=== PATIENT | female | born 1945 | race Caucasian/White ===

== ENCOUNTER → 2016-10-02 08:27 | Outpatient (CLI) | payer MEDICARE ==
[2016-07-15 13:44] VITALS: BMI 36.2
[~2016-10-02 08:27] MED LIST: ACTOS45 MG PO; AFRIN15 ML; ALDACTONE50 MG PO; ATIVAN1 MG PO; CELEXA20 MG; CELEXA20 MG PO; CHRONULAC30 ML PO; CIPRO500 MG PO; FLOMAX0.4 MG PO; IBUPROFEN600 MG PO; LASIX20 MG; LASIX20 MG PO; LEVAQUIN250 MG PO; LOPRESSOR50 MG; LOTENSIN40 MG; MICRO-K10 MEQ; PEPCID20 MG PO; PLOGLITAZONE; POTASSIUM CHLOR8 ME1 PO; SPORANOX100 MG; VITAMIN B-121000 MC3 PO; VITAMIN D31000 UNIT PO; XIFAXAN550 MG PO; ZANTAC150 MG PO; ZOFRAN4 MG PO
[2016-10-02 09:05] LABS: BASOPHILS 0.6 % (0.0-2.0); EOSINOPHILS 7.5 % (0-7); HEMATOCRIT 29.8 % (36.0-48.0); LYMPHOCYTES 41.5 % (15-50); MCH 34.2 pg (26.0-34.0); MCHC 33.6 g/dL (31.0-37.0); MCV 102.1 fL (80.0-100.0); MEAN PLATELET VOLUME 9.3 fL (7.4-10.4); NEUTROPHILS 33.4 % (40-80); PLATELET COUNT 112 10x3/uL (130-400); RBC 2.92 10x6/uL (4.00-5.40); RDW 16.2 % (11.5-14.5)
[2016-10-02 09:14] LABS: INR 1.26 (0.85-1.17); PROTIME 15.7 SECONDS (11.6-15.0)
[2016-10-02 09:21] LABS: ALBUMIN 2.5 g/dL (3.4-5.0); BILIRUBIN - DIRECT 0.64 mg/dL (0.00-0.30); BILIRUBIN - INDIRECT 1.16 mg/dL (0.00-1.00); BILIRUBIN - TOTAL 1.8 mg/dL (0.2-1.3); PROTEIN - SERUM 6.1 g/dL (6.4-8.2)
[2016-10-02 09:52] LABS: WBC 1.6 10x3/uL (4.8-10.8)
== END | disposition home or self-care (01) ==
LOC: D.LAB 08:00 → D.US 09:00
PROVIDERS: Internal Medicine Gastroenterology
DX: K74.3 Primary biliary cirrhosis (principal); K74.69 Other cirrhosis of liver

== ENCOUNTER → 2016-10-08 09:51 | Outpatient (CLI) | payer MEDICARE ==
[2016-07-15 13:44] VITALS: BMI 36.2
== END | disposition home or self-care (01) ==
LOC: D.CT 09:51
DX: K74.60 Unspecified cirrhosis of liver (principal)

== ENCOUNTER → 2017-02-08 10:02 | Day surgery (SDC) | payer MEDICARE ==
[~2017-02-08] VITALS: Ht 149.9 cm; Wt 77.3 kg
--- NOTE | ~2017-02-08 | OP ---
PATIENT NAME: JACKY PRINCE MEDICAL RECORD: [id number] :49 [facility] DATE: SURGEON: SOLOMON HERRERA DO DATE OF OPERATION: 02/08/2017 PROCEDURE: Esophagogastroduodenoscopy. INDICATIONS FOR PROCEDURE: Cirrhosis with history of esophageal varices grade I as well as a blood coagulation disorder. SCOPE: Olympus video gastroscope. MEDICATIONS: Propofol 200 mg IV per anesthesia. ESTIMATED BLOOD LOSS: Minimal. COMPLICATIONS: None. FINDINGS: Informed consent was given. The patient was made comfortable with the above medication. After reaching an adequate level of sedation by slow IV push, the patient was placed on her left side. The endoscope was then advanced under direct visualization through the mouth to the second portion of the duodenum. The upper portion of the esophagus appeared normal. In the middle and distal thirds of the esophagus, there were very small segment of grade I esophageal varices with no bleeding stigmata. At the GE junction, there was some evidence of LA class A reflux induced esophagitis, which was mild. The endoscope was advanced into the stomach and retroflexed to view the cardia, where diminutive sliding hiatal hernia was present. At the cardia, there were a few areas that were oozing blood due to the friability of this tissue. This friability was noted with just washing of the water jet. Throughout the stomach, there was some very mild portal hypertensive gastropathy. There were no polyps visualized in the stomach. There was some granularity and erythema consistent with possible gastritis. No biopsies were taken on this examination due to the patient's tendency to easily bleed. The endoscope was advanced beyond the pylorus into the duodenal bulb and second portion of the duodenum, which appeared normal. Scope was withdrawn from the patient. The patient tolerated the procedure well and there were no complications. IMPRESSION: 1. Grade I esophageal varices without bleeding stigmata. 2. Grade A reflux induced esophagitis. 3. Diminutive sliding hiatal hernia. 4. Portal hypertensive gastropathy. 5. Coagulopathy. PLAN AND RECOMMENDATIONS: 1. Discharge home when recovery parameters are met. 2. Continue current diet. 3. Continue current medications. 4. 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 5. Recall EGD in 1 year for surveillance of esophageal varices. TRANSINT:[id number] Voice Confirmation ID: [id number] DOCUMENT ID: [id number] OPERATIVE REPORT [id number] JACKY PRINCE NATHAN A DO CC: [id number] DICTATION DATE: 02/08/17 1136 HOT STICK MAN: 02/08/17 2215 [facility] [address] [id number]
[~2017-02-08 10:02] MED LIST changes: -AFRIN15 ML; +AFRIN15 ML NASAL; +FUROSEMIDE20 MG PO; -LASIX20 MG
[2017-02-08 10:58] VITALS: BP 118/37; Ht 149.9 cm; Wt 77.3 kg
--- NOTE | 2017-02-08 11:55 | NUR ---
1145-RECD TO ROOM. ALERT. VOISE HERE TO REPORT FINDINGS. IV PATENT. DENIES NAUSEA. 1150-FULL LIQUIDS SERVED.
--- NOTE | 2017-02-08 12:28 | NUR ---
1230-D/C HOME WITH SON VIA WHEELCHAIR.
== END | disposition home or self-care (01) ==
LOC: D.OPS 10:00
DX: K74.60 Unspecified cirrhosis of liver (principal); I85.10 Secondary esophageal varices without bleeding; K21.0 Gastro-esophageal reflux disease with esophagitis; K44.9 Diaphragmatic hernia without obstruction or gangrene; K76.6 Portal hypertension; K31.89 Other diseases of stomach and duodenum; D68.9 Coagulation defect, unspecified; Z01.812 Encounter for preprocedural laboratory examination

== ENCOUNTER → 2017-04-13 16:43 | Day surgery (SDC) | payer MEDICARE ==
[2017-02-08 10:58] VITALS: BMI 34.4
[2017-04-13 08:55] LABS: HEMATOCRIT 27.4 % (36.0-48.0); MCH 32.8 pg (26.0-34.0); MCHC 32.8 g/dL (31.0-37.0); MEAN PLATELET VOLUME 8.3 fL (7.4-10.4); PLATELET COUNT 94 10x3/uL (130-400); RBC 2.74 10x6/uL (4.00-5.40); RDW 19.1 % (11.5-14.5)
[2017-04-13 09:06] LABS: INR 1.37 (0.85-1.17); PROTIME 16.8 SECONDS (11.6-15.0); WBC 1.9 10x3/uL (4.8-10.8)
[2017-04-13 09:17] LABS: ALBUMIN 2.2 g/dL (3.4-5.0); BILIRUBIN - DIRECT 0.75 mg/dL (0.00-0.30); BILIRUBIN - INDIRECT 1.49 mg/dL (0.00-1.00); BILIRUBIN - TOTAL 2.24 mg/dL (0.2-1.3); PROTEIN - SERUM 6.5 g/dL (6.4-8.2)
[2017-04-13 09:44] LABS: BASOPHILS 2 % (0-2); EOSINOPHILS 4 % (0-7); LYMPHOCYTES 40 % (15-50); MONOCYTES 4 % (2-11); NEUTROPHILS 50 % (40-80); PLATELET ESTIMATE DECREASED
== END | disposition home or self-care (01) ==
LOC: D.LAB 08:00 → D.US 09:00 → D.MAMMO 16:43
PROVIDERS: Internal Medicine Gastroenterology
DX: Z12.31 Encounter for screening mammogram for malignant neoplasm of breast (principal); K74.60 Unspecified cirrhosis of liver

== ENCOUNTER → 2017-10-04 09:28 | Outpatient (CLI) | payer MEDICARE ==
[2017-02-08 10:58] VITALS: BMI 34.4
[2017-10-04 10:04] LABS: MCH 34.2 pg (26.0-34.0); MCHC 33.3 g/dL (31.0-37.0); MCV 102.7 fL (80.0-100.0); MEAN PLATELET VOLUME 8.7 fL (7.4-10.4); PLATELET COUNT 84 10x3/uL (130-400); RBC 2.63 10x6/uL (4.00-5.40); RDW 19.9 % (11.5-14.5)
[2017-10-04 10:11] LABS: INR 1.45 (0.85-1.17); PROTIME 17.2 SECONDS (11.6-15.0)
[2017-10-04 10:18] LABS: ALBUMIN 2.1 g/dL (3.4-5.0); BILIRUBIN - DIRECT 1.03 mg/dL (0.00-0.30); BILIRUBIN - INDIRECT 1.63 mg/dL (0.00-1.00); BILIRUBIN - TOTAL 2.66 mg/dL (0.2-1.3); PROTEIN - SERUM 6.3 g/dL (6.4-8.2)
[2017-10-04 11:17] LABS: LYMPHOCYTES 28 % (15-50); MONOCYTES 10 % (2-11); NEUTROPHILS 62 % (40-80); PLATELET ESTIMATE DECREASED
[2017-10-04 11:18] LABS: ROULEAUX OCC
== END | disposition home or self-care (01) ==
LOC: D.LAB 09:28 → D.US 10:00
PROVIDERS: Internal Medicine Gastroenterology
DX: K74.60 Unspecified cirrhosis of liver (principal)

== ENCOUNTER → 2017-10-07 14:07 | Outpatient (CLI) | payer MEDICARE ==
[2017-02-08 10:58] VITALS: BMI 34.4
== END | disposition home or self-care (01) ==
LOC: D.CT 10-06 15:00
DX: R93.5 Abnormal findings on diagnostic imaging of other abdominal regions, including retroperitoneum (principal)

== ENCOUNTER 2018-01-19 17:01 | Inpatient (IN) | payer MEDICARE ==
[~2018-01-19] VITALS: Ht 149.9 cm; Wt 65.3 kg
[~2018-01-19 17:01] MED LIST changes: +ACTOS15 MG PO; -ACTOS45 MG PO
[2018-01-19 19:34] LABS: INR 1.48 (0.85-1.17); PROTIME 17.4 SECONDS (11.6-15.0)
[2018-01-19 19:43] LABS: ALBUMIN 2.1 g/dL (3.4-5.0); ANION GAP 11.2 mmol/L (8-16); BILIRUBIN - TOTAL 1.92 mg/dL (0.2-1.3); CALCIUM 7.8 mg/dL (8.5-10.1); CREATININE - SERUM 0.9 mg/dL (0.6-1.3); MAGNESIUM - SERUM 1.6 mg/dL (1.8-2.4); POTASSIUM - SERUM 3.2 mmol/L (3.5-5.1); PROTEIN - SERUM 6.4 g/dL (6.4-8.2)
[2018-01-19 19:56] VITALS: BP 132/39; BMI 29.1
[2018-01-19 20:00] VITALS: BP 136/49
[2018-01-20] VITALS: BP 115/46
[2018-01-20 04:45] VITALS: BP 115/36
[2018-01-20 08:08] LABS: BASOPHILS 0.6 % (0-2); EOSINOPHILS 3.1 % (0-7); HEMATOCRIT 23.8 % (36.0-48.0); HEMOGLOBIN 7.7 g/dL (12-16); MCH 30.6 pg (26.0-34.0); MCHC 32.4 g/dL (31.0-37.0); MCV 94.4 fL (80.0-100.0); MEAN PLATELET VOLUME 8.9 fL (7.4-10.4); MONOCYTES 19.3 % (2-11); PLATELET COUNT 97 10x3/uL (130-400); RBC 2.52 10x6/uL (4.00-5.40); RDW 17.1 % (11.5-14.5)
[2018-01-20 08:15] LABS: CALC OSMOLALITY 277 mosm/kg (275-300); CALCIUM 7.9 mg/dL (8.5-10.1); CARBON DIOXIDE 26.4 mmol/L (21.0-32.0); CHLORIDE - SERUM 108 mmol/L (98-107); CREATININE - SERUM 0.7 mg/dL (0.6-1.3); POTASSIUM - SERUM 3.3 mmol/L (3.5-5.1); SODIUM 141 mmol/L (136-145); UREA NITROGEN 8 mg/dL (7-18); eGFR NON AFRICAN AMERICAN 88 mL/min (90-120)
[2018-01-20 08:18] LABS: GLUCOSE 88 mg/dL (74-106); WBC 1.6 10x3/uL (4.8-10.8)
[2018-01-20 08:33] VITALS: BP 112/46
[2018-01-20 12:32] VITALS: BMI 29.1
[2018-01-20 14:14] VITALS: Ht 149.9 cm; Wt 65.3 kg
[2018-01-20 14:54] LABS: % SATURATION 8 % (15-55); IRON 24 ug/dl (35-150); TOTAL IRON BIND CAPACITY 293 ug/dl (260-445); UNSAT IRON BIND CAPACITY 269 ug/dl (150-375)
[2018-01-20 15:13] LABS: FERRITIN 112 ng/mL (3-244); LDH 300 U/L (81-234)
[2018-01-20 16:58] LABS: PATH REVIEW PERIPHERAL SMEAR REVIEWED
[2018-01-20 20:00] VITALS: BP 126/49
[2018-01-21] VITALS (8 sets, daily range): BP systolic 111–141; BP diastolic 36–47
[2018-01-21 04:34] LABS: BASOPHILS 1.1 % (0-2); EOSINOPHILS 2.6 % (0-7); HEMATOCRIT 24.2 % (36.0-48.0); HEMOGLOBIN 7.6 g/dL (12-16); MCH 29.9 pg (26.0-34.0); MCHC 31.4 g/dL (31.0-37.0); MCV 95.3 fL (80.0-100.0); MEAN PLATELET VOLUME 8.2 fL (7.4-10.4); MONOCYTES 13.2 % (2-11); NEUTROPHILS 38.1 % (40-80); PLATELET COUNT 106 10x3/uL (130-400); RBC 2.54 10x6/uL (4.00-5.40); RDW 17.3 % (11.5-14.5)
[2018-01-21 04:38] LABS: WBC 1.9 10x3/uL (4.8-10.8)
[2018-01-21 04:50] LABS: CALC OSMOLALITY 279 mosm/kg (275-300); CALCIUM 7.4 mg/dL (8.5-10.1); CARBON DIOXIDE 26.4 mmol/L (21.0-32.0); CHLORIDE - SERUM 110 mmol/L (98-107); CREATININE - SERUM 0.7 mg/dL (0.6-1.3); GLUCOSE 76 mg/dL (74-106); POTASSIUM - SERUM 3.1 mmol/L (3.5-5.1); SODIUM 142 mmol/L (136-145); UREA NITROGEN 7 mg/dL (7-18); eGFR NON AFRICAN AMERICAN 88 mL/min (90-120)
[2018-01-21 08:20] LABS: FOLATE (FOLIC ACID) - SERUM >20.0 ng/mL (>3.0)
[2018-01-21 16:34] LABS: APPEARANCE HAZY (CLEAR); BACTERIA FEW /hpf (NONE SEEN); BILIRUBIN NEGATIVE (NEGATIVE); COLOR YELLOW (YELLOW); EPITHELIAL CELLS 0-5 /hpf (0-5); GLUCOSE NEGATIVE (NEGATIVE); KETONE NEGATIVE (NEGATIVE); NITRITE NEGATIVE (NEGATIVE); PROTEIN NEGATIVE (NEGATIVE); RED CELLS - URINE 0-5 /hpf (0-5); SPECIFIC GRAVITY 1.015 (1.005-1.020); UROBILINOGEN NORMAL (NORMAL)
[2018-01-22 00:26] VITALS: BP 138/40
[2018-01-22 04:32] VITALS: BP 124/34
[2018-01-22 05:54] LABS: HEMATOCRIT 23.6 % (36.0-48.0); MCH 30.6 pg (26.0-34.0); MCHC 31.8 g/dL (31.0-37.0); MCV 96.3 fL (80.0-100.0); MEAN PLATELET VOLUME 8.6 fL (7.4-10.4); PLATELET COUNT 105 10x3/uL (130-400); RBC 2.45 10x6/uL (4.00-5.40); RDW 17.6 % (11.5-14.5); WBC 2.2 10x3/uL (4.8-10.8)
[2018-01-22 06:10] LABS: HEMOGLOBIN 7.5 g/dL (12-16)
[2018-01-22 06:17] LABS: ANION GAP 10.9 mmol/L (8-16); CALCIUM 7.3 mg/dL (8.5-10.1); CARBON DIOXIDE 21.7 mmol/L (21.0-32.0); CREATININE - SERUM 0.9 mg/dL (0.6-1.3); POTASSIUM - SERUM 3.6 mmol/L (3.5-5.1)
[2018-01-22 07:48] VITALS: BP 120/45
[2018-01-22 08:14] LABS: EOSINOPHILS 6 % (0-7); LYMPHOCYTES 44 % (15-50); NEUTROPHILS 50 % (40-80); PLATELET ESTIMATE DECREASED
[2018-01-22 12:39] VITALS: BP 129/51
[2018-01-22 16:17] VITALS: BP 122/44
[2018-01-22 23:04] VITALS: BP 141/46
[2018-01-23 04:31] LABS: BASOPHILS 0.4 % (0-2); EOSINOPHILS 3.3 % (0-7); HEMATOCRIT 23.5 % (36.0-48.0); IMMATURE GRANULOCYTES 0.8 % (0-5); MCH 30.4 pg (26.0-34.0); MCHC 31.9 g/dL (31.0-37.0); MCV 95.1 fL (80.0-100.0); MONOCYTES 14.2 % (2-11); NEUTROPHILS 45.3 % (40-80); PLATELET COUNT 97 10x3/uL (130-400); RBC 2.47 10x6/uL (4.00-5.40); RDW 17.6 % (11.5-14.5); WBC 2.4 10x3/uL (4.8-10.8)
[2018-01-23 04:33] VITALS: BP 154/54
[2018-01-23 04:35] LABS: HEMOGLOBIN 7.5 g/dL (12-16)
[2018-01-23 04:49] LABS: CALC OSMOLALITY 282 mosm/kg (275-300); CALCIUM 7.6 mg/dL (8.5-10.1); CHLORIDE - SERUM 114 mmol/L (98-107); CREATININE - SERUM 0.7 mg/dL (0.6-1.3); GLUCOSE 100 mg/dL (74-106); POTASSIUM - SERUM 3.3 mmol/L (3.5-5.1); SODIUM 143 mmol/L (136-145); UREA NITROGEN 6 mg/dL (7-18); eGFR NON AFRICAN AMERICAN 88 mL/min (90-120)
[2018-01-23 08:42] VITALS: BP 140/58
[2018-01-23 12:45] VITALS: BP 123/49
[2018-01-23] MEDS ORDERED: ANUSOL-HC25 MG RC (13:22)
[2018-01-23] MEDS ORDERED: FOLIC ACID1 MG PO (13:22)
[2018-01-23] MEDS ORDERED: OxyCONTIN PO (13:23)
== END 2018-01-23 16:34 | disposition home or self-care (01) | DRG 394 ==
LOC: D.M2 17:01 → D.MS 17:32
PROVIDERS: Family Medicine; Internal Medicine Nephrology
PROC: 0DJD8ZZ Inspection of Lower Intestinal Tract, Via Natural or Artificial Opening Endoscopic (ICD-10-PCS; principal; 2018-01-21)
DX: K64.8 Other hemorrhoids (principal); D62 Acute posthemorrhagic anemia; D61.818 Other pancytopenia; J90 Pleural effusion, not elsewhere classified; M48.56XA Collapsed vertebra, not elsewhere classified, lumbar region, initial encounter for fracture; M48.54XA Collapsed vertebra, not elsewhere classified, thoracic region, initial encounter for fracture; K74.60 Unspecified cirrhosis of liver; E87.6 Hypokalemia; Z91.81 History of falling; K57.30 Diverticulosis of large intestine without perforation or abscess without bleeding; K59.00 Constipation, unspecified; E61.1 Iron deficiency; E11.9 Type 2 diabetes mellitus without complications; I10 Essential (primary) hypertension; I48.91 Unspecified atrial fibrillation; Z87.891 Personal history of nicotine dependence

== ENCOUNTER 2018-01-26 15:35 | Inpatient (IN) | payer MEDICARE ==
[~2018-01-26] VITALS: Ht 149.9 cm; Wt 63.5 kg
[~2018-01-26 15:35] MED LIST changes: +ANUSOL-HC25 MG RC; -CELEXA20 MG; +FOLIC ACID1 MG PO; +OxyCONTIN PO
[2018-01-26 17:53] LABS: BASOPHILS 0.8 % (0-2); EOSINOPHILS 1.9 % (0-7); HEMATOCRIT 25.7 % (36.0-48.0); HEMOGLOBIN 8.2 g/dL (12-16); IMMATURE GRANULOCYTES 1.1 % (0-5); MCH 30.8 pg (26.0-34.0); MCHC 31.9 g/dL (31.0-37.0); MCV 96.6 fL (80.0-100.0); MEAN PLATELET VOLUME 8.3 fL (7.4-10.4); MONOCYTES 18.3 % (2-11); NEUTROPHILS 48.9 % (40-80); PLATELET COUNT 106 10x3/uL (130-400); RBC 2.66 10x6/uL (4.00-5.40); RDW 18.5 % (11.5-14.5); WBC 2.6 10x3/uL (4.8-10.8)
[2018-01-26 18:06] LABS: INR 1.36 (0.85-1.17); PROTIME 16.3 SECONDS (11.6-15.0)
[2018-01-26 18:14] LABS: ALBUMIN 2.1 g/dL (3.4-5.0); ALKALINE PHOSPHATASE 131 U/L (46-116); ALT (SGPT) 20 U/L (10-68); BILIRUBIN - TOTAL 2.75 mg/dL (0.2-1.3); CALC OSMOLALITY 274 mosm/kg (275-300); CARBON DIOXIDE 23.2 mmol/L (21.0-32.0); CHLORIDE - SERUM 107 mmol/L (98-107); CREATININE - SERUM 0.7 mg/dL (0.6-1.3); GLUCOSE 101 mg/dL (74-106); POTASSIUM - SERUM 3.9 mmol/L (3.5-5.1); PROTEIN - SERUM 6.2 g/dL (6.4-8.2); SODIUM 138 mmol/L (136-145); UREA NITROGEN 10 mg/dL (7-18); eGFR NON AFRICAN AMERICAN 88 mL/min (90-120)
[2018-01-26 18:36] LABS: AMYLASE - SERUM 35 U/L (25-115); CREATINE KINASE 128 UL (21-215); LIPASE 169 U/L (73-393); MAGNESIUM - SERUM 1.7 mg/dL (1.8-2.4); PRO BNP 1256 pg/mL (0-125); THYROID STIMULATING HORMONE 2.22 uIU/mL (0.36-3.74)
[2018-01-26 18:41] LABS: TROPONIN-I 0.322 ng/mL (0.000-0.060)
[2018-01-26 20:21] LABS: APPEARANCE CLEAR (CLEAR); BILIRUBIN NEGATIVE (NEGATIVE); COLOR DK YELLOW (YELLOW); GLUCOSE NEGATIVE (NEGATIVE); KETONE NEGATIVE (NEGATIVE); NITRITE POSITIVE (NEGATIVE); PROTEIN NEGATIVE (NEGATIVE); SPECIFIC GRAVITY 1.025 (1.005-1.020); UROBILINOGEN NORMAL (NORMAL)
[2018-01-26 20:23] LABS: BACTERIA MANY /hpf (NONE SEEN); EPITHELIAL CELLS 0-5 /hpf (0-5); RED CELLS - URINE 0-5 /hpf (0-5); WHITE CELLS - URINE 25-50 /hpf (0-5)
[2018-01-27] MEDS ORDERED: PROTONIX20 MG PO (00:32)
[2018-01-27] MEDS ORDERED: ULTRAM50 MG PO (00:33)
[2018-01-27 00:39] VITALS: BP 131/59; BMI 28.3
[2018-01-27 03:50] VITALS: BP 121/35
[2018-01-27 06:06] LABS: ALBUMIN 1.9 g/dL (3.4-5.0); ALKALINE PHOSPHATASE 135 U/L (46-116); ALT (SGPT) 18 U/L (10-68); CALC OSMOLALITY 278 mosm/kg (275-300); CALCIUM 7.5 mg/dL (8.5-10.1); CARBON DIOXIDE 22.6 mmol/L (21.0-32.0); CHLORIDE - SERUM 109 mmol/L (98-107); CREATININE - SERUM 0.7 mg/dL (0.6-1.3); GLUCOSE 123 mg/dL (74-106); POTASSIUM - SERUM 3.5 mmol/L (3.5-5.1); PROTEIN - SERUM 5.4 g/dL (6.4-8.2); SODIUM 140 mmol/L (136-145); UREA NITROGEN 9 mg/dL (7-18); eGFR NON AFRICAN AMERICAN 88 mL/min (90-120)
[2018-01-27 06:23] LABS: BASOPHILS 0.5 % (0-2); EOSINOPHILS 6.1 % (0-7); HEMATOCRIT 23.6 % (36.0-48.0); IMMATURE GRANULOCYTES 0.5 % (0-5); LYMPHOCYTES 33.3 % (15-50); MCH 30.7 pg (26.0-34.0); MCHC 31.8 g/dL (31.0-37.0); MCV 96.7 fL (80.0-100.0); MEAN PLATELET VOLUME 8.5 fL (7.4-10.4); MONOCYTES 15.5 % (2-11); NEUTROPHILS 44.1 % (40-80); PLATELET COUNT 95 10x3/uL (130-400); RBC 2.44 10x6/uL (4.00-5.40); RDW 18.5 % (11.5-14.5); WBC 2.1 10x3/uL (4.8-10.8)
[2018-01-27 06:26] LABS: HEMOGLOBIN 7.5 g/dL (12-16)
[2018-01-27 08:30] VITALS: BP 131/46
[2018-01-27 12:22] VITALS: Ht 149.9 cm; Wt 63.5 kg
[2018-01-27 12:50] VITALS: BP 132/53
[2018-01-27 15:52] VITALS: BP 128/47
[2018-01-27 20:00] VITALS: BP 120/44
[2018-01-28] VITALS: BP 116/43
[2018-01-28 04:00] VITALS: BP 124/44
[2018-01-28 05:22] LABS: ALBUMIN 1.8 g/dL (3.4-5.0); ALKALINE PHOSPHATASE 124 U/L (46-116); ALT (SGPT) 17 U/L (10-68); CALC OSMOLALITY 281 mosm/kg (275-300); CALCIUM 7.7 mg/dL (8.5-10.1); CARBON DIOXIDE 21.7 mmol/L (21.0-32.0); CHLORIDE - SERUM 111 mmol/L (98-107); CREATININE - SERUM 0.7 mg/dL (0.6-1.3); GLUCOSE 88 mg/dL (74-106); POTASSIUM - SERUM 3.5 mmol/L (3.5-5.1); PROTEIN - SERUM 5.7 g/dL (6.4-8.2); SODIUM 143 mmol/L (136-145); UREA NITROGEN 8 mg/dL (7-18); eGFR NON AFRICAN AMERICAN 88 mL/min (90-120)
[2018-01-28 05:35] LABS: BASOPHILS 0.4 % (0-2); EOSINOPHILS 6.6 % (0-7); HEMATOCRIT 23.4 % (36.0-48.0); IMMATURE GRANULOCYTES 0.4 % (0-5); LYMPHOCYTES 39.2 % (15-50); MCH 30.7 pg (26.0-34.0); MCHC 31.6 g/dL (31.0-37.0); MCV 97.1 fL (80.0-100.0); MEAN PLATELET VOLUME 8.7 fL (7.4-10.4); MONOCYTES 17.6 % (2-11); NEUTROPHILS 35.8 % (40-80); PLATELET COUNT 105 10x3/uL (130-400); RBC 2.41 10x6/uL (4.00-5.40); RDW 19.4 % (11.5-14.5); WBC 2.3 10x3/uL (4.8-10.8)
[2018-01-28 05:56] LABS: HEMOGLOBIN 7.4 g/dL (12-16)
[2018-01-28 07:57] VITALS: BP 129/39
[2018-01-28 11:47] VITALS: BP 103/46
[2018-01-28 15:46] VITALS: BP 129/48
[2018-01-28 19:36] LABS: % SATURATION 14 % (15-55); IRON 38 ug/dl (35-150); TOTAL IRON BIND CAPACITY 258 ug/dl (260-445); UNSAT IRON BIND CAPACITY 220 ug/dl (150-375)
[2018-01-28 20:00] VITALS: BP 146/58
[2018-01-29 06:08] LABS: BASOPHILS 0.8 % (0-2); EOSINOPHILS 5.3 % (0-7); HEMATOCRIT 30.8 % (36.0-48.0); HEMOGLOBIN 9.9 g/dL (12-16); IMMATURE GRANULOCYTES 0.8 % (0-5); LYMPHOCYTES 34.7 % (15-50); MCH 30.3 pg (26.0-34.0); MCHC 32.1 g/dL (31.0-37.0); MCV 94.2 fL (80.0-100.0); MEAN PLATELET VOLUME 8.7 fL (7.4-10.4); MONOCYTES 14.3 % (2-11); NEUTROPHILS 44.1 % (40-80); PLATELET COUNT 96 10x3/uL (130-400); RBC 3.27 10x6/uL (4.00-5.40); RDW 20.6 % (11.5-14.5); WBC 2.5 10x3/uL (4.8-10.8)
[2018-01-29 06:44] LABS: ALBUMIN 1.9 g/dL (3.4-5.0); ALKALINE PHOSPHATASE 136 U/L (46-116); ALT (SGPT) 17 U/L (10-68); CALC OSMOLALITY 275 mosm/kg (275-300); CALCIUM 7.6 mg/dL (8.5-10.1); CARBON DIOXIDE 23.3 mmol/L (21.0-32.0); CHLORIDE - SERUM 109 mmol/L (98-107); CREATININE - SERUM 0.7 mg/dL (0.6-1.3); GLUCOSE 79 mg/dL (74-106); POTASSIUM - SERUM 3.7 mmol/L (3.5-5.1); PROTEIN - SERUM 5.9 g/dL (6.4-8.2); SODIUM 140 mmol/L (136-145); UREA NITROGEN 7 mg/dL (7-18); eGFR NON AFRICAN AMERICAN 88 mL/min (90-120)
[2018-01-29 09:04] VITALS: BP 130/49
[2018-01-29 13:23] VITALS: BP 147/52
[2018-01-29 16:58] VITALS: BP 137/61
[2018-01-29 19:36] VITALS: BP 140/45
[2018-01-30 04:00] VITALS: BP 124/40
[2018-01-30 06:23] LABS: BASOPHILS 0.9 % (0-2); EOSINOPHILS 5.1 % (0-7); HEMATOCRIT 30.3 % (36.0-48.0); HEMOGLOBIN 9.4 g/dL (12-16); IMMATURE GRANULOCYTES 0.4 % (0-5); LYMPHOCYTES 29.1 % (15-50); MCH 29.6 pg (26.0-34.0); MCV 95.3 fL (80.0-100.0); MEAN PLATELET VOLUME 9.2 fL (7.4-10.4); MONOCYTES 15.4 % (2-11); NEUTROPHILS 49.1 % (40-80); PLATELET COUNT 100 10x3/uL (130-400); RBC 3.18 10x6/uL (4.00-5.40); RDW 21.3 % (11.5-14.5); WBC 2.3 10x3/uL (4.8-10.8)
[2018-01-30 06:38] LABS: ALBUMIN 1.9 g/dL (3.4-5.0); ALKALINE PHOSPHATASE 131 U/L (46-116); ALT (SGPT) 15 U/L (10-68); CALC OSMOLALITY 278 mosm/kg (275-300); CALCIUM 7.7 mg/dL (8.5-10.1); CARBON DIOXIDE 25.5 mmol/L (21.0-32.0); CHLORIDE - SERUM 109 mmol/L (98-107); CREATININE - SERUM 0.8 mg/dL (0.6-1.3); GLUCOSE 88 mg/dL (74-106); POTASSIUM - SERUM 3.8 mmol/L (3.5-5.1); PROTEIN - SERUM 5.8 g/dL (6.4-8.2); SODIUM 141 mmol/L (136-145); eGFR NON AFRICAN AMERICAN 75 mL/min (90-120)
[2018-01-30 06:39] LABS: UREA NITROGEN 9 mg/dL (7-18)
[2018-01-30 08:33] VITALS: BP 124/43
[2018-01-30 11:57] VITALS: BP 133/44
[2018-01-30 17:00] VITALS: BP 122/77
[2018-01-30 20:00] VITALS: BP 128/47
[2018-01-31 04:00] VITALS: BP 132/55
[2018-01-31 06:10] LABS: BASOPHILS 0 % (0-2); EOSINOPHILS 4.9 % (0-7); HEMOGLOBIN 9.1 g/dL (12-16); LYMPHOCYTES 32.5 % (15-50); MCH 30.2 pg (26.0-34.0); MCHC 31.4 g/dL (31.0-37.0); MCV 96.3 fL (80.0-100.0); MEAN PLATELET VOLUME 8.7 fL (7.4-10.4); MONOCYTES 19.4 % (2-11); NEUTROPHILS 43.2 % (40-80); PLATELET COUNT 92 10x3/uL (130-400); RBC 3.01 10x6/uL (4.00-5.40); RDW 21.2 % (11.5-14.5); WBC 2.1 10x3/uL (4.8-10.8)
[2018-01-31 06:31] LABS: ALBUMIN 1.8 g/dL (3.4-5.0); ALKALINE PHOSPHATASE 127 U/L (46-116); ALT (SGPT) 18 U/L (10-68); BILIRUBIN - TOTAL 1.95 mg/dL (0.2-1.3); CALC OSMOLALITY 279 mosm/kg (275-300); CALCIUM 7.8 mg/dL (8.5-10.1); CARBON DIOXIDE 25.7 mmol/L (21.0-32.0); CHLORIDE - SERUM 109 mmol/L (98-107); CREATININE - SERUM 0.6 mg/dL (0.6-1.3); GLUCOSE 92 mg/dL (74-106); POTASSIUM - SERUM 3.7 mmol/L (3.5-5.1); PROTEIN - SERUM 5.9 g/dL (6.4-8.2); SODIUM 141 mmol/L (136-145); UREA NITROGEN 9 mg/dL (7-18); eGFR NON AFRICAN AMERICAN > 90 mL/min (90-120)
[2018-01-31 06:34] LABS: PLATELET ESTIMATE DECREASED
[2018-01-31 09:08] VITALS: BP 129/52
[2018-01-31 12:12] LABS: FOLATE (FOLIC ACID) - SERUM 18.4 ng/mL (>3.0)
[2018-01-31 12:45] VITALS: BP 137/50
[2018-01-31 16:29] VITALS: BP 137/41
[2018-01-31 19:50] VITALS: BP 152/48
[2018-01-31 22:22] VITALS: BP 153/48
[2018-02-01 04:00] VITALS: BP 121/40
[2018-02-01 06:14] LABS: ALBUMIN 1.8 g/dL (3.4-5.0); ALKALINE PHOSPHATASE 117 U/L (46-116); ALT (SGPT) 17 U/L (10-68); BILIRUBIN - TOTAL 1.88 mg/dL (0.2-1.3); CALC OSMOLALITY 276 mosm/kg (275-300); CALCIUM 7.8 mg/dL (8.5-10.1); CARBON DIOXIDE 25.8 mmol/L (21.0-32.0); CHLORIDE - SERUM 108 mmol/L (98-107); CREATININE - SERUM 0.7 mg/dL (0.6-1.3); GLUCOSE 85 mg/dL (74-106); POTASSIUM - SERUM 3.6 mmol/L (3.5-5.1); PROTEIN - SERUM 5.8 g/dL (6.4-8.2); SODIUM 140 mmol/L (136-145); UREA NITROGEN 10 mg/dL (7-18); eGFR NON AFRICAN AMERICAN 88 mL/min (90-120)
[2018-02-01 06:38] LABS: EOSINOPHILS 3.6 % (0-7); HEMATOCRIT 28.3 % (36.0-48.0); HEMOGLOBIN 8.9 g/dL (12-16); LYMPHOCYTES 38.1 % (15-50); MCH 30.4 pg (26.0-34.0); MCHC 31.4 g/dL (31.0-37.0); MCV 96.6 fL (80.0-100.0); MEAN PLATELET VOLUME 8.5 fL (7.4-10.4); MONOCYTES 17.8 % (2-11); NEUTROPHILS 39.5 % (40-80); PLATELET COUNT 99 10x3/uL (130-400); RBC 2.93 10x6/uL (4.00-5.40); RDW 20.8 % (11.5-14.5)
[2018-02-01 08:17] VITALS: BP 117/43
[2018-02-01 12:35] VITALS: BP 125/40
== END 2018-02-01 16:50 | disposition home or self-care (01) | DRG 193 ==
LOC: D.ER 15:35 → D.MS 21:59
PROVIDERS: Family Medicine; Nurse Practitioner Family
DX: J18.9 Pneumonia, unspecified organism (principal); J96.01 Acute respiratory failure with hypoxia; D61.818 Other pancytopenia; D68.9 Coagulation defect, unspecified; K74.60 Unspecified cirrhosis of liver; E83.42 Hypomagnesemia; E11.65 Type 2 diabetes mellitus with hyperglycemia; K64.9 Unspecified hemorrhoids; E87.6 Hypokalemia; D50.9 Iron deficiency anemia, unspecified; K59.00 Constipation, unspecified

== ENCOUNTER → 2018-04-15 08:52 | Outpatient (CLI) | payer MEDICARE ==
[2018-01-27 12:22] VITALS: BMI 28.2
[~2018-04-15 08:52] MED LIST changes: +PROTONIX20 MG PO; +ULTRAM50 MG PO
[2018-04-15 10:48] LABS: HEMATOCRIT 32.1 % (36.0-48.0); HEMOGLOBIN 10.7 g/dL (12-16); MCH 33.8 pg (26.0-34.0); MCHC 33.3 g/dL (31.0-37.0); MCV 101.3 fL (80.0-100.0); MEAN PLATELET VOLUME 8.1 fL (7.4-10.4); RBC 3.17 10x6/uL (4.00-5.40); WBC 2.4 10x3/uL (4.8-10.8)
[2018-04-15 10:49] LABS: PLATELET COUNT 128 10x3/uL (130-400)
[2018-04-15 11:03] LABS: INR 1.34 (0.85-1.17); PROTIME 16.1 SECONDS (11.6-15.0)
[2018-04-15 11:09] LABS: ALBUMIN 2.3 g/dL (3.4-5.0); BILIRUBIN - DIRECT 0.77 mg/dL (0.00-0.30); BILIRUBIN - INDIRECT 1.24 mg/dL (0.00-1.00); BILIRUBIN - TOTAL 2.01 mg/dL (0.2-1.3); PROTEIN - SERUM 6.7 g/dL (6.4-8.2)
[2018-04-15 11:50] LABS: BASOPHILS 4 % (0-2); EOSINOPHILS 3 % (0-7); LYMPHOCYTES 40 % (15-50); MONOCYTES 32 % (2-11); NEUTROPHILS 18 % (40-80); PLATELET ESTIMATE DECREASED
== END | disposition home or self-care (01) ==
LOC: D.US 08:52
PROVIDERS: Internal Medicine Gastroenterology
DX: K74.60 Unspecified cirrhosis of liver (principal)

== ENCOUNTER → 2018-05-09 10:16 | Outpatient (CLI) | payer MEDICARE ==
[2018-01-27 12:22] VITALS: BMI 28.2
== END | disposition home or self-care (01) ==
LOC: D.MRI 10:16
DX: R93.8 Abnormal findings on diagnostic imaging of other specified body structures (principal)

== ENCOUNTER 2018-06-15 06:54 | Day surgery (SDC) | payer MEDICARE ==
[~2018-06-15] VITALS: Ht 149.9 cm; Wt 71.8 kg
--- NOTE | ~2018-06-15 | OP ---
PATIENT NAME: JACKY PRINCE MEDICAL RECORD: [id number] :49 LOCATION:[facility] ADMISSION DATE: SURGEON: SOLOMON HERRERA DO DATE OF OPERATION: 06/15/2018 PROCEDURE: EGD. INDICATION FOR PROCEDURE: History of esophageal varices, cirrhosis secondary to nonalcoholic steatohepatitis. SCOPE: Olympus video gastroscope. MEDICATIONS: Propofol 250 mg IV per anesthesia. ESTIMATED BLOOD LOSS: None. COMPLICATIONS: None. FINDINGS: Informed consent was given. The patient was made comfortable with the above medication. After reaching an adequate level of sedation by slow IV push, the patient was placed on her left side. The endoscope was advanced under direct visualization through the mouth to the second portion of the duodenum. The upper, middle, and lower thirds of the esophagus appeared normal. There were no obvious esophageal varices present on today's examination. At the GE junction, there was some mild evidence of LA class A reflux-induced esophagitis. The endoscope was advanced beyond the GE junction into the stomach and retroflexed to view the cardia, where a very small sliding hiatal hernia was present. In the stomach, there was diffuse and very mild portal hypertensive gastropathy. No biopsies were taken on today's examination because of the elevated INR and low platelets, related to her cirrhosis. The endoscope was advanced beyond the pylorus into the duodenum. The entire examined duodenum appeared normal. The endoscope was then withdrawn from the patient. The patient tolerated the procedure well and there were no complications. IMPRESSION: 1. LA class A reflux-induced esophagitis. 2. Small sliding hiatal hernia. 3. Mild portal hypertensive gastropathy. PLAN AND RECOMMENDATIONS: 1. Discharge home when recovery parameters are met. 2. Continue current diet and current medications. 3. Recall EGD in 5 years' time for surveillance of esophageal varices. If the patient's liver function declines, this recall can be moved up to a sooner date. TRANSINT:[id number] Voice Confirmation ID: [id number] DOCUMENT ID: [id number] OPERATIVE REPORT [id number] JACKY PRINCE SOLOMON HERRERA DO at 1340 CC: [id number] DICTATION DATE: 06/15/18 1024 DINING CAR WAITER/WAITRESS: 06/15/18 1220 [facility] [address] [facility] [place] [address]
[2018-06-15 07:30] LABS: BASOPHILS 1.2 % (0-2); EOSINOPHILS 3.7 % (0-7); HEMATOCRIT 28.7 % (36.0-48.0); HEMOGLOBIN 9.4 g/dL (12-16); IMMATURE GRANULOCYTES 0.4 % (0-5); LYMPHOCYTES 43.9 % (15-50); MCH 33.2 pg (26.0-34.0); MCHC 32.8 g/dL (31.0-37.0); MCV 101.4 fL (80.0-100.0); MEAN PLATELET VOLUME 8.5 fL (7.4-10.4); MONOCYTES 15.4 % (2-11); NEUTROPHILS 35.4 % (40-80); PLATELET COUNT 100 10x3/uL (130-400); RBC 2.83 10x6/uL (4.00-5.40); RDW 16.8 % (11.5-14.5); WBC 2.5 10x3/uL (4.8-10.8)
[2018-06-15 07:43] LABS: ALBUMIN 2.3 g/dL (3.4-5.0); ANION GAP 13.5 mmol/L (8-16); BILIRUBIN - TOTAL 2.13 mg/dL (0.2-1.3); CARBON DIOXIDE 22.2 mmol/L (21.0-32.0); CREATININE - SERUM 0.9 mg/dL (0.6-1.3); INR 1.35 (0.85-1.17); POTASSIUM - SERUM 3.7 mmol/L (3.5-5.1); PROTEIN - SERUM 6.7 g/dL (6.4-8.2); PROTIME 16.2 SECONDS (11.6-15.0)
[2018-06-15 07:44] LABS: APTT 36.9 SECONDS (22.8-39.4)
[2018-06-15 08:22] VITALS: Ht 149.9 cm; Wt 71.8 kg
== END 2018-06-15 11:30 | disposition home or self-care (01) ==
LOC: D.OPS 06:54
PROVIDERS: Anesthesiology
DX: K21.0 Gastro-esophageal reflux disease with esophagitis (principal); K44.9 Diaphragmatic hernia without obstruction or gangrene

== ENCOUNTER 2018-08-21 12:20 | Inpatient (IN) | payer MEDICARE ==
[~2018-08-21] VITALS: Ht 149.9 cm; Wt 64.4 kg
--- NOTE | 2018-08-21 07:30 | NUR ---
SUPINE IN BED, EYES CLOSED. INTRODUCED SELF TO PT, SHE ACKNOWLEDGED ME, STATED SHE WAS FINE AND DOZED BACK OFF.
--- NOTE | 2018-08-21 09:30 | NUR ---
SUPINE IN BED, SPONTANEOUS EYE OPENING UPON VERBAL STIMULATION. ATTEMPTED TO REVIEW MEDICATIONS WITH PT, BUT SHE FELL ASLEEP WHILE LISTING MEDICATIONS SHE TAKES. WILL CONTINUE TO MONITOR CLOSELY.
--- NOTE | 2018-08-21 12:30 | NUR ---
poc glucose per ems 131
[2018-08-21 12:52] LABS: APPEARANCE CLEAR (CLEAR); BILIRUBIN NEGATIVE (NEGATIVE); COLOR YELLOW (YELLOW); GLUCOSE NEGATIVE (NEGATIVE); KETONE NEGATIVE (NEGATIVE); NITRITE NEGATIVE (NEGATIVE); PROTEIN NEGATIVE (NEGATIVE); SPECIFIC GRAVITY 1.015 (1.005-1.020); UROBILINOGEN NORMAL (NORMAL)
[2018-08-21 13:09] LABS: UDS - AMPHET NEGATIVE QUAL (NEGATIVE); UDS - BARB NEGATIVE QUAL (NEGATIVE); UDS - BENZO NEGATIVE QUAL (NEGATIVE); UDS - COCAINE NEGATIVE QUAL (NEGATIVE); UDS - OPIATE NEGATIVE QUAL (NEGATIVE); UDS - PCP NEGATIVE QUAL (NEGATIVE); UDS - THC NEGATIVE QUAL (NEGATIVE)
[2018-08-21 13:46] VITALS: BP 127/48
--- NOTE | 2018-08-21 13:46 | NUR ---
PT BACK FROM XRAY.
--- NOTE | 2018-08-21 13:55 | NUR ---
LAB IN TO DRAW PTS LABS.
[2018-08-21 14:22] LABS: BASOPHILS 0.5 % (0-2); EOSINOPHILS 0.2 % (0-7); HEMATOCRIT 32.6 % (36.0-48.0); IMMATURE GRANULOCYTES 0.7 % (0-5); LYMPHOCYTES 16.6 % (15-50); MCH 32.8 pg (26.0-34.0); MCHC 33.7 g/dL (31.0-37.0); MCV 97.3 fL (80.0-100.0); MEAN PLATELET VOLUME 8.7 fL (7.4-10.4); MONOCYTES 13.8 % (2-11); NEUTROPHILS 68.2 % (40-80); PLATELET COUNT 119 10x3/uL (130-400); RBC 3.35 10x6/uL (4.00-5.40); RDW 15.3 % (11.5-14.5); WBC 4.4 10x3/uL (4.8-10.8)
[2018-08-21 14:37] LABS: ALBUMIN 2.2 g/dL (3.4-5.0); ALKALINE PHOSPHATASE 100 U/L (46-116); ALT (SGPT) 20 U/L (10-68); BILIRUBIN - TOTAL 2.52 mg/dL (0.2-1.3); CALC OSMOLALITY 281 mosm/kg (275-300); CARBON DIOXIDE 22.5 mmol/L (21.0-32.0); CHLORIDE - SERUM 108 mmol/L (98-107); CREATININE - SERUM 0.6 mg/dL (0.6-1.3); GLUCOSE 123 mg/dL (74-106); POTASSIUM - SERUM 3.6 mmol/L (3.5-5.1); PROTEIN - SERUM 6.8 g/dL (6.4-8.2); SODIUM 141 mmol/L (136-145); UREA NITROGEN 12 mg/dL (7-18); eGFR NON AFRICAN AMERICAN > 90 mL/min (90-120)
[2018-08-21 14:53] LABS: CKMB 1.6 U/L (0.0-3.6); CREATINE KINASE 234 UL (21-215); MAGNESIUM - SERUM 1.5 mg/dL (1.8-2.4); THYROID STIMULATING HORMONE 2.28 uIU/mL (0.36-3.74)
[2018-08-21 15:04] LABS: TROPONIN-I 0.133 ng/mL (0.000-0.060)
[2018-08-21 15:07] LABS: APTT 38.5 SECONDS (22.8-39.4); INR 1.36 (0.85-1.17); PROTIME 16.2 SECONDS (11.6-15.0)
[2018-08-21 15:22] LABS: CKMB 1.6 U/L (0.0-3.6)
[2018-08-21 15:57] VITALS: BP 127/48
--- NOTE | 2018-08-21 16:32 | NUR ---
PT SLEEPING SUPINE IN BED, NO DISCOMFORT NOTED AT THIS TIME
--- NOTE | 2018-08-21 18:28 | MORECARE ---
CASE MANAGEMENT DISCHARGE SUMMARY PATIENT: JACKY PRINCE UNIT: [id number] ADM DATE: 08/21/18 AGE: 72 : [birth year] SEX: F ROOM/BED: D.2231 AUTHOR: GILA ABRAHAM PHYSICIAN: REFERRING PHYSICIAN: TOM BLUNT MD DATE OF SERVICE: 08/21/18 Discharge Plan Patient Name: JACKY PRINCE Facility: [facility]:[place] : 1945 Planned Disposition: Home Health Service Anticipated Discharge Date: 08/24/18 Discharge Date: Expected LOS: 3 Initial Reviewer: [email or web address] Initial Review Date: 08/21/2018 Generated: 08/21/18 7:28 pm DCPIA - Discharge Planning Initial Assessment Updated by [email or web address]: Georgia Reyna on 08/21/18 6:27 pm * Is the patient Alert and Oriented? Yes * How many steps to enter\exit or inside your home? * PCP Dr. Main * Pharmacy [facility] * Preadmission Environment Home with Family * ADLs Partial Dependent * Partial ADLs (Assistance needed) Bathing * Equipment Cane Rolling Walker Shower Chair * List name and contact numbers for known caregivers / representatives who currently or will assist patient after discharge: Karen Marques [facility] - [phone] * Verbal permission to speak to the caregivers and representatives has been obtained from the patient. Yes * Community resources currently utilized None * Additional services required to return to the preadmission environment? Yes * Can the patient safely return to the preadmission environment? No * Has this patient been hospitalized within the prior 30 days at any hospital? No Patient Name: JACKY PRINCE Page 17902 at 1828 All edits/amendments must be made on the electronic document DICTATION DATE: 08/21/181826 WASHER CARCASS: HARJIT 08/21/181826 RPT#: [id number] DC DATE: STATUS: ADM IN [facility] [address] [place] [address] END OF REPORT
--- NOTE | 2018-08-21 18:35 | MORECARE ---
CASE MANAGEMENT DISCHARGE SUMMARY PATIENT: JACKY PRINCE UNIT: [id number] ADM DATE: 08/21/18 AGE: 72 : 47 SEX: F ROOM/BED: D.2231 AUTHOR: GILA ABRAHAM PHYSICIAN: REFERRING PHYSICIAN: TOM BLUNT MD DATE OF SERVICE: 08/21/18 Discharge Plan Patient Name: JACKY PRINCE Facility: [facility]:[place] : 1945 Planned Disposition: Home Health Service Anticipated Discharge Date: 08/24/18 Discharge Date: Expected LOS: 3 Initial Reviewer: [email or web address] Initial Review Date: 08/21/2018 Generated: 08/21/18 7:35 pm DCP- Discharge Planning Updated by [email or web address]: Georgia Reyna on 08/21/18 5:[address] Patient Name: JACKY PRINCE Admission Status: ER Accout number: [id number] Admission Date: 08-21-2018 : 1945 Admission Diagnosis: Attending: TOM BLUNT Current LOS: 1 Anticipated DC Date: 08-24-2018 Planned Disposition: Home Health Service Primary Insurance: [employer] P[employer] MCR [employer]VANT Discharge Planning Comments: CM met with patient to complete initial dc planning assessment. CM educated patient on the CM role and verbal consent given by patient to complete assessment. Patient lethargic and had to be woken up multiple time to complete assessment. Patient lives at home with her two grandsons. Her sister reported to the ER provider that the patient's grandsons are not taking very good care of the patient. She has had multiple falls in the past week. The sister was not present at time of assessment by cm. Patient denied having community resources such as home health or services. Patient will most likely need assistance at discharge and may benefit from rehab and at the least home health with therapy. Patient stated her sister is trying to work on getting her assistance but she couldn't tell CM what type of assistance she was trying to arrange for her. CM will continue to follow and will assist as needed with dc plans/needs. Clin Nurse Spec: Georgia Reyna RN, [facility] DCPIA - Discharge Planning Initial Assessment Updated by [email or web address]: Georgia Reyna on 08/21/18 6:27 pm * Is the patient Alert and Oriented? Yes * How many steps to enter\exit or inside your home? * PCP Dr. Main * Pharmacy [facility] * Preadmission Environment Home with Family * ADLs Partial Dependent * Partial ADLs (Assistance needed) Bathing * Equipment Cane Rolling Walker Shower Chair * List name and contact numbers for known caregivers / representatives who currently or will assist patient after discharge: Karen Marques [facility] [phone] * Verbal permission to speak to the caregivers and representatives has been obtained from the patient. Yes * Community resources currently utilized None * Additional services required to return to the preadmission environment? Yes * Can the patient safely return to the preadmission environment? No * Has this patient been hospitalized within the prior 30 days at any hospital? No Last DP export: 08/21/18 5:28 Patient Name: JACKY PRINCE Page 23961 at 1835 All edits/amendments must be made on the electronic document DICTATION DATE: 08/21/181833 WHITE SUGAR SYRUP OPERATOR: HARJIT 08/21/181833 RPT#: [id number] DC DATE: STATUS: ADM IN [facility] [address] [place] [address] END OF REPORT
--- NOTE | 2018-08-21 18:39 | NUR ---
PT ARRIVED ON UNIT ACCOMPANIED BY HOSPITAL STAFF FROM ER. RESPIRATIONS EVEN AND UNLABORED, NO S/S OF DISTRESS NOTED. PT RESTING PEACEFULLY UPON ARRIVAL. AWOKEN EASILY TO VERBAL STIMULI, MOOD PLEASANT. BRUISES NOTED ON FACE AND ARMS. DENIES NEEDS AT THIS TIME. BED LOW AND LOCKED, SR UP X2, CL IN EASY REACH.
[2018-08-21 21:14] VITALS: BP 133/56
--- NOTE | 2018-08-22 | NUR ---
ASSISTING WITH GOWN CHAANGE. PT IS ABLE TO TURN TO SIDES SLOWLY, REPORTS PAIN IN BACK AND HIPS.
--- NOTE | 2018-08-22 02:20 | NUR ---
OIL WINTERIZER NOTE- CO PAIN IN HER BACK. RESTING OTHER THAN THAT. NO NEEDS AT THIS TIME
--- NOTE | 2018-08-22 02:32 | NUR ---
SUPINE IN BED, EYES CLOSED, RESPIRATIONS AUDIBLE. WILL CONTINUE TO MONITOR.
[2018-08-22 04:19] VITALS: BP 131/56
[2018-08-22 04:54] VITALS: BP 127/48; BMI 28.7
[2018-08-22 05:00] LABS: BASOPHILS 0.5 % (0-2); EOSINOPHILS 1.8 % (0-7); HEMATOCRIT 31.2 % (36.0-48.0); HEMOGLOBIN 10.2 g/dL (12-16); IMMATURE GRANULOCYTES 0.3 % (0-5); MCH 32.1 pg (26.0-34.0); MCHC 32.7 g/dL (31.0-37.0); MCV 98.1 fL (80.0-100.0); MEAN PLATELET VOLUME 8.6 fL (7.4-10.4); MONOCYTES 18.1 % (2-11); NEUTROPHILS 52.3 % (40-80); PLATELET COUNT 124 10x3/uL (130-400); RBC 3.18 10x6/uL (4.00-5.40); RDW 15.2 % (11.5-14.5); WBC 3.9 10x3/uL (4.8-10.8)
[2018-08-22 05:26] LABS: ALBUMIN 1.8 g/dL (3.4-5.0); ALKALINE PHOSPHATASE 86 U/L (46-116); ALT (SGPT) 21 U/L (10-68); BILIRUBIN - TOTAL 1.71 mg/dL (0.2-1.3); CALC OSMOLALITY 283 mosm/kg (275-300); CALCIUM 7.2 mg/dL (8.5-10.1); CARBON DIOXIDE 23.6 mmol/L (21.0-32.0); CHLORIDE - SERUM 111 mmol/L (98-107); CREATININE - SERUM 0.5 mg/dL (0.6-1.3); GLUCOSE 87 mg/dL (74-106); POTASSIUM - SERUM 3.4 mmol/L (3.5-5.1); PROTEIN - SERUM 5.7 g/dL (6.4-8.2); SODIUM 143 mmol/L (136-145); UREA NITROGEN 12 mg/dL (7-18); eGFR NON AFRICAN AMERICAN > 90 mL/min (90-120)
--- NOTE | 2018-08-22 09:20 | NUR ---
PT RESTING IN BED. "I WANT MY ATIVAN AND ULTRAM". EXPLAINED TO PT WE NEED A DR ORDER BEFORE WE CAN ADMINISTER THOSE ITEMS. NO S/S OF ACUTE DISTRESS. REVIEWING MED REQ WITH PT. CL IN PLACE.
[2018-08-22 09:23] VITALS: BP 132/53
--- NOTE | 2018-08-22 11:08 | NUR ---
PT REFUSED LACTULOSE. EXPLAINED TO PT IT WAS NEEDED AND DIARRHEA IS NORMAL WITH THIS MEDICATION. PT STILL REFUSED. NO S/S OF ACUTE DISTRESS. CL IN PLACE.
[2018-08-22 11:57] LABS: CKMB 1.3 U/L (0.0-3.6); CREATINE KINASE 187 UL (21-215)
[2018-08-22 11:58] LABS: TROPONIN-I 0.108 ng/mL (0.000-0.060)
[2018-08-22 12:17] VITALS: BP 137/48
[2018-08-22 12:49] VITALS: Ht 149.9 cm; Wt 64.4 kg
--- NOTE | 2018-08-22 16:01 | NUR ---
DC IV WITH TIP INTACT.
--- NOTE | 2018-08-22 16:19 | NUR ---
RESITED IV TO R WRIST. FLUSHED WELL. NO REDDNESS OR SWELLING NOTED. NO S/S OF ACUTE DISTRESS. CL IN PLACE.
[2018-08-22 17:41] LABS: CKMB 1.7 U/L (0.0-3.6); CREATINE KINASE 173 UL (21-215)
[2018-08-22 17:45] LABS: TROPONIN-I 0.124 ng/mL (0.000-0.060)
[2018-08-22 20:00] VITALS: BP 119/46
[2018-08-22 22:59] LABS: CKMB 1.3 U/L (0.0-3.6); CREATINE KINASE 145 UL (21-215)
[2018-08-22 23:00] LABS: TROPONIN-I 0.135 ng/mL (0.000-0.060)
[2018-08-23] VITALS: BP 113/53
--- NOTE | 2018-08-23 02:30 | NUR ---
PATIENT SLEEPING BETTER AFTER BEING GIVEN HER PAIN MEDICINE. NO FURTHER NEEDS AT THIS TIME
[2018-08-23 04:00] VITALS: BP 146/55
[2018-08-23 07:03] LABS: BASOPHILS 0.7 % (0-2); EOSINOPHILS 4.1 % (0-7); HEMATOCRIT 30.4 % (36.0-48.0); HEMOGLOBIN 10.3 g/dL (12-16); MCH 32.5 pg (26.0-34.0); MCHC 33.9 g/dL (31.0-37.0); MEAN PLATELET VOLUME 8.5 fL (7.4-10.4); MONOCYTES 17.1 % (2-11); NEUTROPHILS 50.1 % (40-80); PLATELET COUNT 122 10x3/uL (130-400); RBC 3.17 10x6/uL (4.00-5.40); RDW 15.1 % (11.5-14.5)
[2018-08-23 07:08] LABS: MCV 95.9 fL (80.0-100.0); WBC 2.9 10x3/uL (4.8-10.8)
[2018-08-23 07:14] LABS: ALKALINE PHOSPHATASE 90 U/L (46-116); BILIRUBIN - TOTAL 1.76 mg/dL (0.2-1.3); CALC OSMOLALITY 282 mosm/kg (275-300); CALCIUM 7.5 mg/dL (8.5-10.1); CHLORIDE - SERUM 110 mmol/L (98-107); GLUCOSE 109 mg/dL (74-106); PROTEIN - SERUM 5.7 g/dL (6.4-8.2); SODIUM 142 mmol/L (136-145); UREA NITROGEN 11 mg/dL (7-18); eGFR NON AFRICAN AMERICAN 88 mL/min (90-120)
--- NOTE | 2018-08-23 07:21 | NUR ---
NOTIFIED MONTRELL OF HIGH AMMONIA LEVEL
[2018-08-23 07:23] LABS: CREATININE - SERUM 0.7 mg/dL (0.6-1.3)
[2018-08-23 08:09] LABS: ALBUMIN 1.8 g/dL (3.4-5.0); ALT (SGPT) 19 U/L (10-68)
[2018-08-23 09:34] VITALS: BP 154/52
[2018-08-23 12:45] VITALS: BP 147/58
[2018-08-23 16:52] VITALS: BP 150/45
--- NOTE | 2018-08-23 19:35 | NUR ---
AWAKE,ALERT.COMPLAINS OF BACK PAIN 02/06.TRAMADOL 50 MG GIVEN PER ORDERS. IV INFUSING TO RIGHT WRIST WITHOUT REDNESS OR EDEMA NOTED. HAS MULTIPLE BRUISES TO ARMS AND FACE. SCOTT BRITTNEE ON. CL IN REACH
[2018-08-23 20:22] VITALS: BP 138/40
[2018-08-24 00:09] VITALS: BP 132/58
[2018-08-24 04:15] VITALS: BP 138/56
--- NOTE | 2018-08-24 05:17 | NUR ---
PT IN BED RESTING QUIETLY IN SUPINE POSTION. ALERT AND ORIENTED X4. RESPIRATIONS EVEN AND UNLABORED. VS STABLE AND AFEBRILE. NO VISUAL CUES OF DISTRESS NOTED. DENIES ANY OTHER NEEDS AT THIS TIME. BED LOW, SIDE RAILS UP X2. CALL LIGHT IN REACH. WILL CONTINUE TO MONITOR.
[2018-08-24 07:20] LABS: HEMATOCRIT 32.1 % (36.0-48.0); HEMOGLOBIN 10.6 g/dL (12-16); MCH 32.1 pg (26.0-34.0); MCV 97.3 fL (80.0-100.0); MEAN PLATELET VOLUME 8.5 fL (7.4-10.4); PLATELET COUNT 120 10x3/uL (130-400); RDW 15.1 % (11.5-14.5); WBC 2.4 10x3/uL (4.8-10.8)
[2018-08-24 08:04] LABS: ALBUMIN 1.9 g/dL (3.4-5.0); ALKALINE PHOSPHATASE 100 U/L (46-116); ALT (SGPT) 20 U/L (10-68); BILIRUBIN - TOTAL 1.89 mg/dL (0.2-1.3); CALCIUM 7.6 mg/dL (8.5-10.1); CARBON DIOXIDE 24.7 mmol/L (21.0-32.0); CHLORIDE - SERUM 106 mmol/L (98-107); CREATININE - SERUM 0.7 mg/dL (0.6-1.3); GLUCOSE 105 mg/dL (74-106); POTASSIUM - SERUM 3.6 mmol/L (3.5-5.1); PROTEIN - SERUM 5.9 g/dL (6.4-8.2); SODIUM 139 mmol/L (136-145); eGFR NON AFRICAN AMERICAN 88 mL/min (90-120)
[2018-08-24 08:05] LABS: CALC OSMOLALITY 275 mosm/kg (275-300); UREA NITROGEN 8 mg/dL (7-18)
--- NOTE | 2018-08-24 08:10 | NUR ---
PT AOX4 RESP EVEN AND NONLABORED PT DENIES NEEDS AT THIS TIME IV TO RIGHT FOREARM PATENT AND INTACT AT THIS TIME SRX2 BED AT LOWEST SETTING CALL LIGHT WITHIN REACH WILL CONTINUE TO MONITOR
[2018-08-24 08:27] LABS: EOSINOPHILS 1 % (0-7); LYMPHOCYTES 33 % (15-50); MONOCYTES 7 % (2-11); NEUTROPHILS 56 % (40-80); PLATELET ESTIMATE NORMAL
[2018-08-24 08:30] VITALS: BP 142/46
--- NOTE | 2018-08-24 10:42 | NUR ---
Rehab Prescreening Consult recieved and the chart has been reviewed. She is a managed Medicare with [employer] and will require a preauth for the ARU. All information will have to be submitted to them for their approval. Shelly Pierre RN Clinical Liaison, Rehab
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
[2018-08-24 12:59] VITALS: BP 145/45
[2018-08-24 16:14] VITALS: BP 138/51
[2018-08-24 20:00] VITALS: BP 149/53
[2018-08-25 04:00] VITALS: BP 143/52
[2018-08-25 05:30] LABS: BASOPHILS 0.9 % (0-2); EOSINOPHILS 7.8 % (0-7); HEMATOCRIT 32.2 % (36.0-48.0); HEMOGLOBIN 10.7 g/dL (12-16); IMMATURE GRANULOCYTES 0.4 % (0-5); LYMPHOCYTES 33.3 % (15-50); MCH 32.3 pg (26.0-34.0); MCHC 33.2 g/dL (31.0-37.0); MCV 97.3 fL (80.0-100.0); MEAN PLATELET VOLUME 8.6 fL (7.4-10.4); MONOCYTES 16.9 % (2-11); NEUTROPHILS 40.7 % (40-80); PLATELET COUNT 114 10x3/uL (130-400); RBC 3.31 10x6/uL (4.00-5.40); RDW 15.4 % (11.5-14.5); WBC 2.3 10x3/uL (4.8-10.8)
[2018-08-25 05:58] LABS: ALBUMIN 1.8 g/dL (3.4-5.0); ALKALINE PHOSPHATASE 103 U/L (46-116); ALT (SGPT) 25 U/L (10-68); BILIRUBIN - TOTAL 1.53 mg/dL (0.2-1.3); CALC OSMOLALITY 271 mosm/kg (275-300); CALCIUM 7.4 mg/dL (8.5-10.1); CARBON DIOXIDE 25.3 mmol/L (21.0-32.0); CHLORIDE - SERUM 104 mmol/L (98-107); CREATININE - SERUM 0.6 mg/dL (0.6-1.3); GLUCOSE 92 mg/dL (74-106); POTASSIUM - SERUM 3.6 mmol/L (3.5-5.1); PROTEIN - SERUM 5.7 g/dL (6.4-8.2); SODIUM 137 mmol/L (136-145); UREA NITROGEN 6 mg/dL (7-18); eGFR NON AFRICAN AMERICAN > 90 mL/min (90-120)
[2018-08-25 09:00] VITALS: BP 141/48
--- NOTE | 2018-08-25 10:28 | NUR ---
Rehab Note- Received voicemail from Vaishnavi Maddox with [facility], the patient has been denied an inpatient acute rehab stay per their medical observer. A peer to peer can be set up calling [phone] [place] [address] today. Stated the patient's care be provided at a lower level of care such as a SNF. Spoke with GOLDIE Mahoney. Thank you for this referral! Sun Montero RN Clinical Liaison, [facility] Rehab
--- NOTE | 2018-08-25 11:44 | MORECARE ---
CASE MANAGEMENT DISCHARGE SUMMARY PATIENT: JACKY PRINCE UNIT: [id number] ADM DATE: 08/21/18 AGE: 72 : [birth year] SEX: F ROOM/BED: D.2231 AUTHOR: GILA ABRAHAM PHYSICIAN: REFERRING PHYSICIAN: TOM BLUNT MD DATE OF SERVICE: 08/25/18 Discharge Plan Patient Name: JACKY PRINCE Facility: [facility]:[place] : 1945 Planned Disposition: Home Health Service Anticipated Discharge Date: 08/24/18 Discharge Date: Expected LOS: 3 Initial Reviewer: [email or web address] Initial Review Date: 08/21/2018 Generated: 08/25/18 12:44 pm DCP- Discharge Planning Updated by [email or web address]: Georgia Reyna on 08/21/18 5:[address] Patient Name: JACKY PRINCE Admission Status: ER Accout number: [id number] Admission Date: 08-21-2018 : 1945 Admission Diagnosis: Attending: TOM BLUNT Current LOS: 1 Anticipated DC Date: 08-24-2018 Planned Disposition: Home Health Service Primary Insurance: [employer] PPO MCR ADVANT Discharge Planning Comments: CM met with patient to complete initial dc planning assessment. CM educated patient on the CM role and verbal consent given by patient to complete assessment. Patient lethargic and had to be woken up multiple time to complete assessment. Patient lives at home with her two grandsons. Her sister reported to the ER provider that the patient's grandsons are not taking very good care of the patient. She has had multiple falls in the past week. The sister was not present at time of assessment by cm. Patient denied having community resources such as home health or services. Patient will most likely need assistance at discharge and may benefit from rehab and at the least home health with therapy. Patient stated her sister is trying to work on getting her assistance but she couldn't tell CM what type of assistance she was trying to arrange for her. CM will continue to follow and will assist as needed with dc plans/needs. Word Processing Supervisor: Georgia Reyna RN, [facility] DCPIA - Discharge Planning Initial Assessment Updated by [id number]: Georgia Reyna on 08/21/18 6:27 pm * Is the patient Alert and Oriented? Yes * How many steps to enter\exit or inside your home? * PCP Dr. Main * Pharmacy [facility] * Preadmission Environment Home with Family * ADLs Partial Dependent * Partial ADLs (Assistance needed) Bathing * Equipment Cane Rolling Walker Shower Chair * List name and contact numbers for known caregivers / representatives who currently or will assist patient after discharge: Karen Marques [facility] [phone] * Verbal permission to speak to the caregivers and representatives has been obtained from the patient. Yes * Community resources currently utilized None * Additional services required to return to the preadmission environment? Yes * Can the patient safely return to the preadmission environment? No * Has this patient been hospitalized within the prior 30 days at any hospital? No External Providers External Provider: [facility] Next Contact Date: Service Request Date: Service Type: Resolution: Reviewer: Comments: Last DP export: 08/21/18 5:35 Patient Name: JACKY PRINCE Page 82376 at 1144 All edits/amendments must be made on the electronic document DICTATION DATE: 08/25/181142 KILN FIRER: HARJIT 08/25/181142 RPT#: [id number] DC DATE: STATUS: ADM IN [facility] [address] [place] [address] END OF REPORT
--- NOTE | 2018-08-25 11:51 | MORECARE ---
CASE MANAGEMENT DISCHARGE SUMMARY PATIENT: JACKY PRINCE UNIT: [id number] ADM DATE: 08/21/18 AGE: 72 : [birth year] SEX: F ROOM/BED: D.2231 AUTHOR: GILA ABRAHAM PHYSICIAN: REFERRING PHYSICIAN: TOM BLUNT MD DATE OF SERVICE: 08/25/18 Discharge Plan Patient Name: JACKY PRINCE Facility: [facility]:[place] : 1945 Planned Disposition: Home Health Service Anticipated Discharge Date: 08/24/18 Discharge Date: Expected LOS: 3 Initial Reviewer: [email or web address] Initial Review Date: 08/21/2018 Generated: 08/25/18 12:51 pm Comments DCP- Discharge Planning Updated by [email or web address]: Maru Cierra on 08/25/18 10:[address] Received a call from inpatient rehab that patient was denied by insurance for inpatient rehab. A peer to peer can be set up if appropriate. I spoke with the patient and she is willing to go to a skilled facility for rehab. [place] [facility]. She asked that I inform her sister. I called her sister's home number and left a message and also called her cell phone (no voice mail box has been set up). I called Belinda at [facility] and clinical faxed. I spoke with Merline LEONG for Dr. Wei and she agrees to SNF placement. CM will continue to follow and assist with discharge planning/needs. DCP- Discharge Planning Updated by [email or web address]: Georgia Reyna on 08/21/18 5:[address] Patient Name: JACKY PRINCE Admission Status: ER Accout number: [id number] Admission Date: 08-21-2018 : 1945 Admission Diagnosis: Attending: TOM BLUNT Current LOS: 1 Anticipated DC Date: 08-24-2018 Planned Disposition: Home Health Service Primary Insurance: [employer] P[employer] M[employer]VANT Discharge Planning Comments: CM met with patient to complete initial dc planning assessment. CM educated patient on the CM role and verbal consent given by patient to complete assessment. Patient lethargic and had to be woken up multiple time to complete assessment. Patient lives at home with her two grandsons. Her sister reported to the ER provider that the patient's grandsons are not taking very good care of the patient. She has had multiple falls in the past week. The sister was not present at time of assessment by cm. Patient denied having community resources such as home health or services. Patient will most likely need assistance at discharge and may benefit from rehab and at the least home health with therapy. Patient stated her sister is trying to work on getting her assistance but she couldn't tell CM what type of assistance she was trying to arrange for her. CM will continue to follow and will assist as needed with dc plans/needs. Office Machine Servicer Apprentice: Georgia Reyna RN, [facility] DCPIA - Discharge Planning Initial Assessment Updated by [email or web address]: Georgia Reyna on 08/21/18 6:27 pm * Is the patient Alert and Oriented? Yes * How many steps to enter\exit or inside your home? * PCP Dr. Main * Pharmacy [facility] * Preadmission Environment Home with Family * ADLs Partial Dependent * Partial ADLs (Assistance needed) Bathing * Equipment Cane Rolling Walker Shower Chair * List name and contact numbers for known caregivers / representatives who currently or will assist patient after discharge: Karen Marques - sister - [phone] * Verbal permission to speak to the caregivers and representatives has been obtained from the patient. Yes * Community resources currently utilized None * Additional services required to return to the preadmission environment? Yes * Can the patient safely return to the preadmission environment? No * Has this patient been hospitalized within the prior 30 days at any hospital? No Last DP export: 08/25/18 10:44 Patient Name: JACKY PRINCE Page 06888 at 1151 All edits/amendments must be made on the electronic document DICTATION DATE: 08/25/18 1151 MATERIAL SPECIALIST: HARJIT 08/25/18 1151 RPT#: [id number] DC DATE: STATUS: ADM IN [facility] [address] [place] [address] END OF REPORT
[2018-08-25 12:00] VITALS: BP 146/47
--- NOTE | 2018-08-25 13:04 | NUR ---
OT NOTE: PT REPORTED FEELING SOMEWHAT BETTER THAN YESTERDAY. APPLIED BACK BRACE PRIOR TO SUPINE TO SIT, PT REQUIRED MOD ASSIST BUT HAD LESS PAIN THAN YESTERDAY. ABLE TO AMBULATE AROUND BED AND SAT UP IN CHAIR FOR APPROX 5 MIN. PT ABLE TO WASH HANDS AND FACE WITH WARM CLOTH. AMB TO SINK WITH MIN ASSIST (VERY SLOW PACE) AND WAS ABLE TO BRUSH TEETH WHILE AT SINK. PT WANTED TO DO A SPONGE BATH, HOWEVER, WHILE I WAS GATHERING THINGS, SHE STATED THAT SHE JUST DIDNT THINK SHE COULD DO IT AT THIS TIME SHE WAS TOO TIRED. ASSISTED BACK TO BED THEN REMOVED BACK BRACE. PT REQUIRED MIN ASSIST TO GET BACK IN BED AND MOD ASSIST FOR SCOOTING UP IN BED. PT WOULD BENEFIT FROM IP REHAB PRIOR TO RETURNING HOME. SYDNI REYES, OTR/L
[2018-08-25 16:00] VITALS: BP 146/48
[2018-08-25 20:00] VITALS: BP 116/46
--- NOTE | 2018-08-26 00:57 | NUR ---
PT RESTING WITH EYES CLOSED. BREATHING EVEN AND UNLABORED. A/OX4 ONCE WOKE. DENIES NEEDS AT THIS TIME. WILL CONTINUE POC.
[2018-08-26 04:00] VITALS: BP 155/61
[2018-08-26 06:23] LABS: ALBUMIN 1.9 g/dL (3.4-5.0); ALKALINE PHOSPHATASE 114 U/L (46-116); ALT (SGPT) 30 U/L (10-68); CALC OSMOLALITY 280 mosm/kg (275-300); CALCIUM 7.6 mg/dL (8.5-10.1); CARBON DIOXIDE 27.5 mmol/L (21.0-32.0); CHLORIDE - SERUM 106 mmol/L (98-107); CREATININE - SERUM 0.6 mg/dL (0.6-1.3); GLUCOSE 114 mg/dL (74-106); POTASSIUM - SERUM 4.1 mmol/L (3.5-5.1); PROTEIN - SERUM 5.9 g/dL (6.4-8.2); SODIUM 141 mmol/L (136-145); eGFR NON AFRICAN AMERICAN > 90 mL/min (90-120)
[2018-08-26 06:27] LABS: UREA NITROGEN 9 mg/dL (7-18)
[2018-08-26 06:36] LABS: BASOPHILS 0.3 % (0-2); EOSINOPHILS 4.9 % (0-7); HEMATOCRIT 32.3 % (36.0-48.0); HEMOGLOBIN 10.7 g/dL (12-16); IMMATURE GRANULOCYTES 0.3 % (0-5); LYMPHOCYTES 24.7 % (15-50); MCH 32.4 pg (26.0-34.0); MCHC 33.1 g/dL (31.0-37.0); MCV 97.9 fL (80.0-100.0); MEAN PLATELET VOLUME 9.8 fL (7.4-10.4); MONOCYTES 11.3 % (2-11); NEUTROPHILS 58.5 % (40-80); PLATELET COUNT 145 10x3/uL (130-400); RDW 15.7 % (11.5-14.5); WBC 3.3 10x3/uL (4.8-10.8)
--- NOTE | 2018-08-26 07:00 | NUR ---
MORNING ASSESSMENT COMPLETE. SEE ASSESSMENT FLOWSHEET FOR FURTHER DETAILS. PT LYING IN BED AAO X3. SKIN COLOR AOPPROPRIATE TO RTHNICITY. R FA LR @125- SITE C/D/I; PATENT. S1 AND S2 HEARD AT AORTIC, PULMONIC, ERBS, TRICUSPID, AND MITRAL SITES- REGULAR RHYTHM. BILAT RADIAL AND PEDAL PULSES PALPABLE AND STRONG. LUNG SOUNDS CTA- PRN O2- NO O2 AT THIS TIME AND SATS WITHIN NORMAL RANGE. BOWEL SOUNDS ACTIVE X4. C/O BACK PAIN IN LUMBAR REGION- WEARS BRACE WHEN UP OUT OF BED. DENIES NEEDS AT THIS TIME. WILL CONTINUE TO MONIOR PT.
[2018-08-26 08:51] VITALS: BP 160/54
--- NOTE | 2018-08-26 11:10 | NUR ---
OT NOTE: MIN ASSIST WITH ROLLING SIDE TO SIDE TO RODOLFO BRACE; SUPINE TO SIT WAS BETTER, REQUIRING MIN ASSIST TODAY. ABLE TO AMB TO BATHROOM WITH WALKER BUT REQUIRED MAX ASSIST WITH HYGIENE DUE TO INABILITY TO REACH BEHIND HER. AMB APPROX 12-14 FT IN ROOM AND WAS AGREEABLE TO SIT UP IN CHAIR. PT TOLERATED APPROX 1.5 HRS. MOD ASSIST WITH SIT T0 STAND ; AMB TO BATHROOM AGAIN WITH SAME AMOUNT OF ASSIST; BED MOB WITH MOD ASSIST BACK TO BED. SYDNI REYES, OTR/L
[2018-08-26 15:27] VITALS: BP 146/60
--- NOTE | 2018-08-26 19:50 | NUR ---
PT A/OX4. RE-ASSESS TRAMODOL 11/06. RESP EVEN/UNLABORED. SCDS ON, BED LOW, TRAY TABLE AT BS. NO NEEDS. WILL CONTINUE POC.
[2018-08-26 20:28] VITALS: BP 142/42
[2018-08-26 23:54] VITALS: BP 118/79
[2018-08-27 04:32] VITALS: BP 125/47
[2018-08-27 05:55] LABS: BASOPHILS 0.7 % (0-2); EOSINOPHILS 5.3 % (0-7); HEMATOCRIT 30.2 % (36.0-48.0); HEMOGLOBIN 9.9 g/dL (12-16); LYMPHOCYTES 27.2 % (15-50); MCH 32.2 pg (26.0-34.0); MCHC 32.8 g/dL (31.0-37.0); MCV 98.4 fL (80.0-100.0); MEAN PLATELET VOLUME 8.5 fL (7.4-10.4); MONOCYTES 15.5 % (2-11); NEUTROPHILS 51.3 % (40-80); PLATELET COUNT 129 10x3/uL (130-400); RBC 3.07 10x6/uL (4.00-5.40); RDW 15.8 % (11.5-14.5); WBC 2.8 10x3/uL (4.8-10.8)
[2018-08-27 06:30] LABS: ALBUMIN 1.7 g/dL (3.4-5.0); ALKALINE PHOSPHATASE 105 U/L (46-116); ALT (SGPT) 23 U/L (10-68); CALC OSMOLALITY 270 mosm/kg (275-300); CALCIUM 7.3 mg/dL (8.5-10.1); CHLORIDE - SERUM 105 mmol/L (98-107); CREATININE - SERUM 0.5 mg/dL (0.6-1.3); GLUCOSE 84 mg/dL (74-106); POTASSIUM - SERUM 3.5 mmol/L (3.5-5.1); PROTEIN - SERUM 5.4 g/dL (6.4-8.2); SODIUM 137 mmol/L (136-145); UREA NITROGEN 7 mg/dL (7-18); eGFR NON AFRICAN AMERICAN > 90 mL/min (90-120)
[2018-08-27 09:00] VITALS: BP 154/54
[2018-08-27 12:30] VITALS: BP 126/51
--- NOTE | 2018-08-27 12:35 | NUR ---
OT NOTE: PT PERFORMED BETTER TODAY. PT AND NURSING REPORT THAT SHE HAS KEPT BACK BRACE ON WHILE IN BED AND FEELS LIKE IT PROVIDES MORE SUPPORT; BED MOB WITH MIN ASSIST TODAY; ABLE TO AMB INTO HALLWAY TODAY WITH USE OF RW AND GAIT BELT. IN ROOM AMBULATION WITH MIN ASSIST ; SIMPLE GROOMING TASKS WITH SET UP; MIN ASSIST WITH TOILETING. PT REQUIRES EXT TIME FOR ALL ADLS AND MOBILTIY DUE TO PAIN. CONT TO RECOMMEND IP REHAB. SYDNI REYES, OTR/L
[2018-08-27 16:17] VITALS: BP 161/51
--- NOTE | 2018-08-27 18:41 | NUR ---
SUPERVISOR POULTRY HATCHERY NOTES - CONTINUE SUPERVISOR POULTRY HATCHERY PLAN OF CARE
[2018-08-27 20:27] VITALS: BP 152/55
[2018-08-27 23:49] VITALS: BP 130/62
[2018-08-28 04:16] VITALS: BP 140/69
[2018-08-28 05:09] LABS: BASOPHILS 0.4 % (0-2); EOSINOPHILS 4.9 % (0-7); HEMATOCRIT 30.3 % (36.0-48.0); HEMOGLOBIN 10.1 g/dL (12-16); LYMPHOCYTES 32.7 % (15-50); MCH 32.5 pg (26.0-34.0); MCHC 33.3 g/dL (31.0-37.0); MCV 97.4 fL (80.0-100.0); MEAN PLATELET VOLUME 8.5 fL (7.4-10.4); MONOCYTES 16.2 % (2-11); NEUTROPHILS 45.8 % (40-80); PLATELET COUNT 123 10x3/uL (130-400); RBC 3.11 10x6/uL (4.00-5.40); RDW 15.8 % (11.5-14.5); WBC 2.8 10x3/uL (4.8-10.8)
[2018-08-28 05:28] LABS: ALBUMIN 1.9 g/dL (3.4-5.0); ALKALINE PHOSPHATASE 122 U/L (46-116); ALT (SGPT) 25 U/L (10-68); BILIRUBIN - TOTAL 1.41 mg/dL (0.2-1.3); CALC OSMOLALITY 274 mosm/kg (275-300); CALCIUM 7.6 mg/dL (8.5-10.1); CARBON DIOXIDE 27.3 mmol/L (21.0-32.0); CHLORIDE - SERUM 106 mmol/L (98-107); CREATININE - SERUM 0.6 mg/dL (0.6-1.3); GLUCOSE 87 mg/dL (74-106); POTASSIUM - SERUM 3.3 mmol/L (3.5-5.1); PROTEIN - SERUM 5.8 g/dL (6.4-8.2); SODIUM 139 mmol/L (136-145); UREA NITROGEN 6 mg/dL (7-18); eGFR NON AFRICAN AMERICAN > 90 mL/min (90-120)
--- NOTE | 2018-08-28 06:38 | NUR ---
POTASSIUM 3.3 - GAVE K-DUR 40 MEQ PER ELECTROLYTE PROTOCOL. REDRAW ORDERED FOR 1030.
--- NOTE | 2018-08-28 08:20 | NUR ---
AWAKE AND ALERT, BACK BRACE PRESENT, EVEN UNLABORED BREATHING, DENIES ANY NEEDS AT CURRENT TIME, BED LOWERED AND LOCKED, CALL LIGHT WITHIN REACH. CPOC
[2018-08-28 09:31] VITALS: BP 149/48
[2018-08-28 12:00] VITALS: BP 156/53
--- NOTE | 2018-08-28 12:11 | NUR ---
SPOKE WITH PHYSICAL THEJEN ABOUT TRANSFERING PATIENT TO AND FROM BATHROOM. HE INFORMS ME THAT SHE IS SAFE TO GET UP AND TAKE TO RESTROOM LONG SHE HAS SOMEONE WITH HER. PT HAS BEEN USING BEDPAN RECENTLY BUT WE ARE ENCOURGING HER TO GET UP AND INCREASE HER MOBILITY WITH ASSISTANCE.
[2018-08-28 16:00] VITALS: BP 157/67
--- NOTE | 2018-08-28 16:33 | NUR ---
APPLIED HEAT PAD TO LOWER BACK. FOR DISCOMFORT. PT STATES "ITS RELIEVES SOME OF THE PAIN." DENIES ANY OTHER NEEDS OR DISCOMFORTS, BED LOWERED AND LOCKED, CALL LIGHT WITHIN REACH. CPOC
--- NOTE | 2018-08-28 16:46 | NUR ---
REFUSED SHOWER/BED BATH X3. EVEN AFTER ADMINISTERED PAIN MEDICATION AND STILL STATED "NO, NOT TODAY."
[2018-08-28 21:02] VITALS: BP 119/51; BP 146/44
[2018-08-29] VITALS: BP 109/54; BP 120/51
[2018-08-29 04:00] VITALS: BP 137/49
[2018-08-29 06:38] LABS: BASOPHILS 1.2 % (0-2); EOSINOPHILS 3.8 % (0-7); HEMATOCRIT 32.9 % (36.0-48.0); HEMOGLOBIN 10.8 g/dL (12-16); IMMATURE GRANULOCYTES 0.4 % (0-5); LYMPHOCYTES 29.6 % (15-50); MCH 32.1 pg (26.0-34.0); MCHC 32.8 g/dL (31.0-37.0); MCV 97.9 fL (80.0-100.0); MEAN PLATELET VOLUME 8.8 fL (7.4-10.4); MONOCYTES 15.4 % (2-11); NEUTROPHILS 49.6 % (40-80); PLATELET COUNT 131 10x3/uL (130-400); RBC 3.36 10x6/uL (4.00-5.40); RDW 15.6 % (11.5-14.5); WBC 2.6 10x3/uL (4.8-10.8)
[2018-08-29 06:58] LABS: ALBUMIN 2.1 g/dL (3.4-5.0); ALKALINE PHOSPHATASE 142 U/L (46-116); ALT (SGPT) 31 U/L (10-68); BILIRUBIN - TOTAL 1.65 mg/dL (0.2-1.3); CALC OSMOLALITY 275 mosm/kg (275-300); CALCIUM 7.9 mg/dL (8.5-10.1); CARBON DIOXIDE 26.1 mmol/L (21.0-32.0); CHLORIDE - SERUM 104 mmol/L (98-107); CREATININE - SERUM 0.6 mg/dL (0.6-1.3); GLUCOSE 92 mg/dL (74-106); POTASSIUM - SERUM 3.7 mmol/L (3.5-5.1); PROTEIN - SERUM 6.4 g/dL (6.4-8.2); SODIUM 139 mmol/L (136-145); UREA NITROGEN 6 mg/dL (7-18); eGFR NON AFRICAN AMERICAN > 90 mL/min (90-120)
[2018-08-29 09:39] VITALS: BP 142/48
--- NOTE | 2018-08-29 12:14 | MORECARE ---
CASE MANAGEMENT DISCHARGE SUMMARY PATIENT: JACKY PRINCE UNIT: [id number] ADM DATE: 08/21/18 AGE: 72 : [birth year] SEX: F ROOM/BED: D.2231 AUTHOR: GILA ABRAHAM PHYSICIAN: REFERRING PHYSICIAN: TOM BLUNT MD DATE OF SERVICE: 08/29/18 Discharge Plan Patient Name: JACKY PRINCE Facility: [facility]:[place] : 1945 Planned Disposition: Home Health Service Anticipated Discharge Date: 08/24/18 Discharge Date: Expected LOS: 3 Initial Reviewer: [email or web address] Initial Review Date: 08/21/2018 Generated: 08/29/18 1:14 pm Comments DCP- Discharge Planning Updated by [email or web address]: Maru Norton on 08/29/18 11:[address] Spoke with Merry at [facility] to follow up on referral. She states she will see if she has insurance authorization yet and return my call. CM will continue to follow and assist with discharge planning/needs. DCP- Discharge Planning Updated by [email or web address]: Maru Norton on 08/25/18 10:[address] Received a call from inpatient rehab that patient was denied by insurance for inpatient rehab. A peer to peer can be set up if appropriate. I spoke with the patient and she is willing to go to a skilled facility for rehab. [place] [facility]. She asked that I inform her sister. I called her sister's home number and left a message and also called her cell phone (no voice mail box has been set up). I called Belinda at [facility] and clinical faxed. I spoke with Merline LEONG for Dr. Wei and she agrees to SNF placement. CM will continue to follow and assist with discharge planning/needs. DCP- Discharge Planning Updated by [email or web address]: Georgia Reyna on 08/21/18 5:[address] Patient Name: JACKY PRINCE Admission Status: ER Accout number: [id number] Admission Date: 08-21-2018 : 1945 Admission Diagnosis: Attending: TOM BLUNT Current LOS: 1 Anticipated DC Date: 08-24-2018 Planned Disposition: Home Health Service Primary Insurance: [employer] CHOICE PPO MCR ADVANT Discharge Planning Comments: CM met with patient to complete initial dc planning assessment. CM educated patient on the CM role and verbal consent given by patient to complete assessment. Patient lethargic and had to be woken up multiple time to complete assessment. Patient lives at home with her two grandsons. Her sister reported to the ER provider that the patient's grandsons are not taking very good care of the patient. She has had multiple falls in the past week. The sister was not present at time of assessment by cm. Patient denied having community resources such as home health or cg services. Patient will most likely need assistance at discharge and may benefit from rehab and at the least home health with therapy. Patient stated her sister is trying to work on getting her assistance but she couldn't tell CM what type of assistance she was trying to arrange for her. CM will continue to follow and will assist as needed with dc plans/needs. Collection Administrator: Georgia Reyna RN, [facility] DCPIA - Discharge Planning Initial Assessment Updated by [email or web address]: Georgia Reyna on 08/21/18 6:27 pm * Is the patient Alert and Oriented? Yes * How many steps to enter\exit or inside your home? * PCP Dr. Main * Pharmacy [facility] * Preadmission Environment Home with Family * ADLs Partial Dependent * Partial ADLs (Assistance needed) Bathing * Equipment Cane Rolling Walker Shower Chair * List name and contact numbers for known caregivers / representatives who currently or will assist patient after discharge: Karen Marques [facility] - [phone] * Verbal permission to speak to the caregivers and representatives has been obtained from the patient. Yes * Community resources currently utilized None * Additional services required to return to the preadmission environment? Yes * Can the patient safely return to the preadmission environment? No * Has this patient been hospitalized within the prior 30 days at any hospital? No Last DP export: 08/25/18 10:51 Patient Name: JACKY PRINCE Page [id number] at 1214 All edits/amendments must be made on the electronic document DICTATION DATE: 08/29/[address] MONKEY: DM 08/29/18 1214 RPT#: [id number] DC DATE: STATUS: ADM IN [facility] [address] [place] [address] END OF REPORT
--- NOTE | 2018-08-29 12:32 | NUR ---
OT NOTE: PT PERFORMED BETTER TODAY. BED MOB WITH VERY MINIMAL ASSIST; SIT TO STAND WITH MIN ASSIST; ABLE TO STAND WITH WALKER FOR SEVERAL MIN WHILE ADJUSTMENTS WERE MADE TO CLOTHING, BRACE, AND IV TUBES. PT AMB APPROX 60-70 FT TODAY WITH WALKER AND CGA. IN ROOM AMBULATION WITH WALKER AND CGA, OCCASSIONAL ASSIST WITH WALKER MGMT IN ROOM DUE TO SMALLER AREA. SYDNI REYES, OTR/L
[2018-08-29 13:21] VITALS: BP 151/54
[2018-08-29 17:20] VITALS: BP 151/52
--- NOTE | 2018-08-29 19:12 | NUR ---
LAYING IN BED, EYES CLOSED, EVEN UNLABORED BREATHING, BACK BRACE PRESENT, BED LOWERED AND LOCKED, IV INFUSING FLUIDS IN RIGHT FOREARM, PATENT, CALL LIGHT WITHIN REACH. CPOC
--- NOTE | 2018-08-29 20:36 | NUR ---
AWAKE,ALERT.NO COMPLAINTS VOICED. IV INFUSING TO RIGHT WRIST WITHOUT REDNESS OR EDEMA NOTED.BACK BACE IS ON AT PRESENT. RESP EVEN AND UNLOAOBRED. NO DISTRESS NOTED. CL IN REACH
[2018-08-29 20:46] VITALS: BP 146/50
[2018-08-30 00:08] VITALS: BP 144/49
[2018-08-30 04:22] VITALS: BP 135/44
[2018-08-30 07:22] LABS: BASOPHILS 0.8 % (0-2); EOSINOPHILS 3.3 % (0-7); HEMATOCRIT 32.8 % (36.0-48.0); LYMPHOCYTES 35.8 % (15-50); MCH 32.4 pg (26.0-34.0); MCHC 33.5 g/dL (31.0-37.0); MCV 96.5 fL (80.0-100.0); MEAN PLATELET VOLUME 9.1 fL (7.4-10.4); NEUTROPHILS 44.1 % (40-80); PLATELET COUNT 150 10x3/uL (130-400); RDW 15.5 % (11.5-14.5); WBC 2.4 10x3/uL (4.8-10.8)
[2018-08-30 07:43] LABS: ALKALINE PHOSPHATASE 156 U/L (46-116); ALT (SGPT) 30 U/L (10-68); BILIRUBIN - TOTAL 1.53 mg/dL (0.2-1.3); CALC OSMOLALITY 271 mosm/kg (275-300); CALCIUM 7.9 mg/dL (8.5-10.1); CARBON DIOXIDE 24.6 mmol/L (21.0-32.0); CHLORIDE - SERUM 105 mmol/L (98-107); CREATININE - SERUM 0.6 mg/dL (0.6-1.3); GLUCOSE 100 mg/dL (74-106); POTASSIUM - SERUM 3.9 mmol/L (3.5-5.1); PROTEIN - SERUM 6.3 g/dL (6.4-8.2); SODIUM 137 mmol/L (136-145); UREA NITROGEN 7 mg/dL (7-18); eGFR NON AFRICAN AMERICAN > 90 mL/min (90-120)
--- NOTE | 2018-08-30 08:15 | NUR ---
PATIENT REPOSITIONED IN BED FOR MEAL. PATIENT REPORTS PAIN WITH SITTING UP. BACK BRACE IN PLACE. PATIENT REPORTS PAIN CONTROLED WITH ULTRAM. SCDS IN PLACE. IV RIGHT WRIST WITH LR AT 30 ML/HR INFUSING. CL IN REACH, FALL PRECAUTIONS USED
[2018-08-30 08:40] VITALS: BP 144/48
[2018-08-30 12:40] VITALS: BP 127/55
[2018-08-30 16:00] VITALS: BP 155/52
[2018-08-30 20:00] VITALS: BP 122/41
--- NOTE | 2018-08-30 21:00 | NUR ---
FSBS 97 NO COVERAGE NEEDED AT THIS TIME.
[2018-08-31] VITALS: BP 131/47
--- NOTE | 2018-08-31 00:51 | NUR ---
ASSESSED, PT IS ASLEEP WITH EASY RESPIRATIONS AND NO DISTRESS NOTED.
[2018-08-31 04:00] VITALS: BP 136/47
[2018-08-31 05:55] LABS: HEMOGLOBIN 10.6 g/dL (12-16); MCH 32.1 pg (26.0-34.0); MCHC 33.1 g/dL (31.0-37.0); MEAN PLATELET VOLUME 8.6 fL (7.4-10.4); PLATELET COUNT 141 10x3/uL (130-400); RDW 15.6 % (11.5-14.5); WBC 2.7 10x3/uL (4.8-10.8)
[2018-08-31 06:37] LABS: ALBUMIN 2.1 g/dL (3.4-5.0); ALKALINE PHOSPHATASE 157 U/L (46-116); ALT (SGPT) 27 U/L (10-68); BILIRUBIN - TOTAL 1.42 mg/dL (0.2-1.3); CALC OSMOLALITY 280 mosm/kg (275-300); CALCIUM 7.6 mg/dL (8.5-10.1); CHLORIDE - SERUM 108 mmol/L (98-107); CREATININE - SERUM 0.6 mg/dL (0.6-1.3); GLUCOSE 82 mg/dL (74-106); POTASSIUM - SERUM 3.5 mmol/L (3.5-5.1); SODIUM 142 mmol/L (136-145); eGFR NON AFRICAN AMERICAN > 90 mL/min (90-120)
[2018-08-31 06:42] LABS: UREA NITROGEN 9 mg/dL (7-18)
[2018-08-31 08:02] LABS: EOSINOPHILS 2 % (0-7); LYMPHOCYTES 45 % (15-50); MONOCYTES 11 % (2-11); NEUTROPHILS 41 % (40-80); PLATELET ESTIMATE NORMAL; ROULEAUX OCC; SCHISTOCYTES OCC
[2018-08-31 08:03] LABS: ANISOCYTOSIS OCC
--- NOTE | 2018-08-31 08:10 | NUR ---
PT RESTING IN BED WITH BACK BRACE IN PLACE. RESP EVEN AND UNLABORED. VOICES PAIN /10 AT THIS TIME. REQUEST PAIN MEDICATION WITH AM MEDS. SALINE LOCK TO RIGHT WRIST, SITE WITHOUT REDNESS OR EDEMA, EASILY FLUSHES. DENIES FURTHER NEEDS AT THIS TIME. CL WITHIN REACH. ENCOURAGED TO CALL WITH NEEDS. CONTINUE WITH POC
[2018-08-31 08:51] VITALS: BP 137/51
--- NOTE | 2018-08-31 09:31 | MORECARE ---
CASE MANAGEMENT DISCHARGE SUMMARY PATIENT: JACKY PRINCE UNIT: [id number] ADM DATE: 08/21/18 AGE: 72 : [birth year] SEX: F ROOM/BED: D.2231 AUTHOR: JARADDOC PHYSICIAN: REFERRING PHYSICIAN: TOM BLUNT MD DATE OF SERVICE: 08/31/18 Discharge Plan Patient Name: JACKY PRINCE Facility: [facility]:[place] : 1945 Planned Disposition: Home Health Service Anticipated Discharge Date: 08/24/18 Discharge Date: Expected LOS: 3 Initial Reviewer: [email or web address] Initial Review Date: 08/21/2018 Generated: 08/31/18 10:30 am Comments DCP- Discharge Planning Updated by [email or web address]: Maru Norton on 08/31/18 8:[address] Merry from [facility] called and states patient has authorization to come to [facility] today. I informed the patient and she is in agreement to go there today via their van. I called her sister at [phone] and left a voice message that her sister will be discharging to [facility] today to a skilled (Medicare) bed. DCP- Discharge Planning Updated by [id number]: Maru Norton on 08/29/18 11:[address] Spoke with Merry at [facility] to follow up on referral. She states she will see if she has insurance authorization yet and return my call. CM will continue to follow and assist with discharge planning/needs. DCP- Discharge Planning Updated by [id number]: Maru Norton on 08/25/18 10:[address] Received a call from inpatient rehab that patient was denied by insurance for inpatient rehab. A peer to peer can be set up if appropriate. I spoke with the patient and she is willing to go to a skilled facility for rehab. [place] [facility]. She asked that I inform her sister. I called her sister's home number and left a message and also called her cell phone (no voice mail box has been set up). I called Belinda at [facility] and clinical faxed. I spoke with Merline LEONG for Dr. Wei and she agrees to SNF placement. CM will continue to follow and assist with discharge planning/needs. DCP- Discharge Planning Updated by [id number]: Georgia Reyna on 08/21/18 5:[address] Patient Name: JACKY PRINCE Admission Status: ER Accout number: [id number] Admission Date: 08-21-2018 : 1945 Admission Diagnosis: Attending: TOM BLUNT Current LOS: 1 Anticipated DC Date: 08-24-2018 Planned Disposition: Home Health Service Primary Insurance: [employer] CHOICE PPO MCR ADVANT Discharge Planning Comments: CM met with patient to complete initial dc planning assessment. CM educated patient on the CM role and verbal consent given by patient to complete assessment. Patient lethargic and had to be woken up multiple time to complete assessment. Patient lives at home with her two grandsons. Her sister reported to the ER provider that the patient's grandsons are not taking very good care of the patient. She has had multiple falls in the past week. The sister was not present at time of assessment by cm. Patient denied having community resources such as home health or services. Patient will most likely need assistance at discharge and may benefit from rehab and at the least home health with therapy. Patient stated her sister is trying to work on getting her assistance but she couldn't tell CM what type of assistance she was trying to arrange for her. CM will continue to follow and will assist as needed with dc plans/needs. Media Intern: Georgia Reyna RN, [facility] DCPIA - Discharge Planning Initial Assessment Updated by [email or web address]: Georgia Reyna on 08/21/18 6:27 pm * Is the patient Alert and Oriented? Yes * How many steps to enter\exit or inside your home? * PCP Dr. Main * Pharmacy [facility] * Preadmission Environment Home with Family * ADLs Partial Dependent * Partial ADLs (Assistance needed) Bathing * Equipment Cane Rolling Walker Shower Chair * List name and contact numbers for known caregivers / representatives who currently or will assist patient after discharge: Karen Marques - - [phone] * Verbal permission to speak to the caregivers and representatives has been obtained from the patient. Yes * Community resources currently utilized None * Additional services required to return to the preadmission environment? Yes * Can the patient safely return to the preadmission environment? No * Has this patient been hospitalized within the prior 30 days at any hospital? No Coverage Notice Reviewer: [email or web address] Magdi Norton Notice Issued Date-Time: 08/31/2018 9:14 Notice Type: IM Discharge Notice Notice Delivered To: Patient Relationship to Patient: Self Metal Furniture Panel Coverer Name: Delivery Method: HAND - Hand Delivered Mahogany Days: Prior Verbal Notification: Recipient Understood Notice: Yes Recipient Signature: Yes Med Rec Note Co-signed by Attending: Coverage Notice Comment: IMM explained, signed, copy given, original placed in MR Last DP export: 08/29/18 11:14 Patient Name: JACKY PRINCE Page [id number] at 0931 All edits/amendments must be made on the electronic document DICTATION DATE: 08/31/18929 REGIONAL HR MANAGER: HARJIT 08/31/18929 RPT#: [id number] DC DATE: STATUS: ADM IN [facility] [address] [place] [address] END OF REPORT
[2018-08-31] MEDS ORDERED: ROBAXIN500 MG PO (10:45)
[2018-08-31] MEDS ORDERED: ULTRAM50 MG PO (10:45)
--- NOTE | 2018-08-31 16:40 | MORECARE ---
CASE MANAGEMENT DISCHARGE SUMMARY PATIENT: JACKY PRINCE UNIT: [id number] ADM DATE: 08/21/18 AGE: 72 : [birth year] SEX: F ROOM/BED: D.2231 AUTHOR: GILA ABRAHAM PHYSICIAN: REFERRING PHYSICIAN: TOM BLUNT MD DATE OF SERVICE: 08/31/18 Discharge Plan Patient Name: JACKY PRINCE Facility: [facility]:[place] : 1945 Planned Disposition: Home Health Service Anticipated Discharge Date: 08/24/18 Discharge Date: 08/31/2018 Expected LOS: 3 Initial Reviewer: [email or web address] Initial Review Date: 08/21/2018 Generated: 08/31/18 5:40 pm Comments DCP- Discharge Planning Updated by [email or web address]: Maru Norton on 08/31/18 8:[address] Merry from [facility] called and states patient has authorization to come to [facility] today. I informed the patient and she is in agreement to go there today via their van. I called her sister at [phone] and left a voice message that her sister will be discharging to [facility] today to a skilled (Medicare) bed. DCP- Discharge Planning Updated by [id number]: Maru Norton on 08/29/18 11:[address] Spoke with Merry at [facility] to follow up on referral. She states she will see if she has insurance authorization yet and return my call. CM will continue to follow and assist with discharge planning/needs. DCP- Discharge Planning Updated by [id number]: Maru Norton on 08/25/18 10:[address] Received a call from inpatient rehab that patient was denied by insurance for inpatient rehab. A peer to peer can be set up if appropriate. I spoke with the patient and she is willing to go to a skilled facility for rehab. [place] and [place] [facility]. She asked that I inform her sister. I called her sister's home number and left a message and also called her cell phone (no voice mail box has been set up). I called Belinda at [facility] and clinical faxed. I spoke with Merline LEONG for Dr. Wei and she agrees to SNF placement. CM will continue to follow and assist with discharge planning/needs. DCP- Discharge Planning Updated by [email or web address]: Georgia Reyna on 08/21/18 5:[address] Patient Name: JACKY PRINCE Admission Status: ER Accout number: [id number] Admission Date: 08-21-2018 : 1945 Admission Diagnosis: Attending: TOM BLUNT Current LOS: 1 Anticipated DC Date: 08-24-2018 Planned Disposition: Home Health Service Primary Insurance: [employer] CHOICE PPO MCR ADVANT Discharge Planning Comments: CM met with patient to complete initial dc planning assessment. CM educated patient on the CM role and verbal consent given by patient to complete assessment. Patient lethargic and had to be woken up multiple time to complete assessment. Patient lives at home with her two grandsons. Her sister reported to the ER provider that the patient's grandsons are not taking very good care of the patient. She has had multiple falls in the past week. The sister was not present at time of assessment by cm. Patient denied having community resources such as home health or cg services. Patient will most likely need assistance at discharge and may benefit from rehab and at the least home health with therapy. Patient stated her sister is trying to work on getting her assistance but she couldn't tell CM what type of assistance she was trying to arrange for her. CM will continue to follow and will assist as needed with dc plans/needs. Relationship Counselor: Georgia Reyna RN, [facility] DCPIA - Discharge Planning Initial Assessment Updated by [email or web address]: Georgia Reyna on 08/21/18 6:27 pm * Is the patient Alert and Oriented? Yes * How many steps to enter\exit or inside your home? * PCP Dr. Main * Pharmacy [facility] * Preadmission Environment Home with Family * ADLs Partial Dependent * Partial ADLs (Assistance needed) Bathing * Equipment Cane Rolling Walker Shower Chair * List name and contact numbers for known caregivers / representatives who currently or will assist patient after discharge: Karen Marques - - [phone] * Verbal permission to speak to the caregivers and representatives has been obtained from the patient. Yes * Community resources currently utilized None * Additional services required to return to the preadmission environment? Yes * Can the patient safely return to the preadmission environment? No * Has this patient been hospitalized within the prior 30 days at any hospital? No Coverage Notice Reviewer: [email or web address] Magdi Norton Notice Issued Date-Time: 08/31/2018 9:14 Notice Type: IM Discharge Notice Notice Delivered To: Patient Relationship to Patient: Self Shuttle Fixer Name: Delivery Method: HAND - Hand Delivered Mahogany Days: Prior Verbal Notification: Recipient Understood Notice: Yes Recipient Signature: Yes Med Rec Note Co-signed by Attending: Coverage Notice Comment: IMM explained, signed, copy given, original placed in MR Last DP export: 08/31/18 8:30 am Patient Name: JACKY PRINCE Page [id number] at 1640 All edits/amendments must be made on the electronic document DICTATION DATE: 08/31/18 1639 COMPUTER LAB PARA PROFESSIONAL: HARJIT 08/31/18 1639 RPT#: [id number] DC DATE:08/31/18 STATUS: DIS IN [facility] [address] [place] [address] END OF REPORT
== END 2018-08-31 12:49 | disposition home or self-care (01) | DRG 91 ==
LOC: D.ER 12:20 → D.MS 17:19
PROVIDERS: Emergency Medicine; Family Medicine; ADMIT Internal Medicine Nephrology
DX: G72.89 Other specified myopathies (principal); G93.41 Metabolic encephalopathy; N39.0 Urinary tract infection, site not specified; J90 Pleural effusion, not elsewhere classified; R53.1 Weakness; E11.42 Type 2 diabetes mellitus with diabetic polyneuropathy; I10 Essential (primary) hypertension; I48.91 Unspecified atrial fibrillation; K74.60 Unspecified cirrhosis of liver; S22.081S Stable burst fracture of T11-T12 vertebra, sequela; B96.20 Unspecified Escherichia coli [E. coli] as the cause of diseases classified elsewhere; B96.4 Proteus (mirabilis) (morganii) as the cause of diseases classified elsewhere; E11.65 Type 2 diabetes mellitus with hyperglycemia; D69.6 Thrombocytopenia, unspecified; G47.33 Obstructive sleep apnea (adult) (pediatric); K21.9 Gastro-esophageal reflux disease without esophagitis; F41.9 Anxiety disorder, unspecified

== ENCOUNTER → 2018-10-06 11:28 | Outpatient (CLI) | payer MEDICARE ==
[2018-08-22 12:49] VITALS: BMI 28.7
[~2018-10-06 11:28] MED LIST changes: +ROBAXIN500 MG PO
[2018-10-06 12:45] LABS: BASOPHILS 0.3 % (0-2); EOSINOPHILS 3.8 % (0-7); HEMATOCRIT 32.6 % (36.0-48.0); LYMPHOCYTES 31.7 % (15-50); MCH 32.4 pg (26.0-34.0); MCHC 33.7 g/dL (31.0-37.0); MCV 95.9 fL (80.0-100.0); MEAN PLATELET VOLUME 8.9 fL (7.4-10.4); NEUTROPHILS 51.2 % (40-80); PLATELET COUNT 140 10x3/uL (130-400); RDW 16.3 % (11.5-14.5); WBC 3.2 10x3/uL (4.8-10.8)
[2018-10-06 13:09] LABS: ALBUMIN 2.5 g/dL (3.4-5.0); BILIRUBIN - DIRECT 0.46 mg/dL (0.00-0.30); BILIRUBIN - INDIRECT 1.04 mg/dL (0.00-1.00); BILIRUBIN - TOTAL 1.5 mg/dL (0.2-1.3); PROTEIN - SERUM 6.8 g/dL (6.4-8.2)
[2018-10-06 13:58] LABS: INR 1.24 (0.85-1.17); PROTIME 15.5 SECONDS (11.6-15.0)
== END | disposition home or self-care (01) ==
LOC: D.US 11:28
PROVIDERS: Internal Medicine Gastroenterology
DX: K74.60 Unspecified cirrhosis of liver (principal); K72.90 Hepatic failure, unspecified without coma; D69.6 Thrombocytopenia, unspecified

== ENCOUNTER → 2018-10-20 19:58 | Outpatient (CLI) | payer MEDICARE ==
[2018-08-22 12:49] VITALS: BMI 28.7
[2018-10-20 20:44] LABS: BASOPHILS 0.3 % (0-2); EOSINOPHILS 5.2 % (0-7); HEMATOCRIT 32.5 % (36.0-48.0); HEMOGLOBIN 10.9 g/dL (12-16); LYMPHOCYTES 36.9 % (15-50); MCH 32.2 pg (26.0-34.0); MCHC 33.5 g/dL (31.0-37.0); MCV 95.9 fL (80.0-100.0); MEAN PLATELET VOLUME 8.5 fL (7.4-10.4); MONOCYTES 15.2 % (2-11); NEUTROPHILS 42.4 % (40-80); PLATELET COUNT 161 10x3/uL (130-400); RBC 3.39 10x6/uL (4.00-5.40); RDW 16.6 % (11.5-14.5); WBC 3.1 10x3/uL (4.8-10.8)
[2018-10-20 21:15] LABS: ALBUMIN 2.6 g/dL (3.4-5.0); ANION GAP 15.7 mmol/L (8-16); BILIRUBIN - TOTAL 1.14 mg/dL (0.2-1.3); CALCIUM 8.2 mg/dL (8.5-10.1); CARBON DIOXIDE 22.1 mmol/L (21.0-32.0); CREATININE - SERUM 0.9 mg/dL (0.6-1.3); POTASSIUM - SERUM 3.8 mmol/L (3.5-5.1); PROTEIN - SERUM 7.1 g/dL (6.4-8.2)
== END | disposition home or self-care (01) ==
LOC: D.LABREF 19:58
PROVIDERS: Family Medicine
DX: K74.60 Unspecified cirrhosis of liver (principal); I10 Essential (primary) hypertension; S32.010D Wedge compression fracture of first lumbar vertebra, subsequent encounter for fracture with routine healing; X58.XXXA Exposure to other specified factors, initial encounter

== ENCOUNTER → 2018-10-24 10:43 | Outpatient (CLI) | payer MEDICARE ==
[2018-08-22 12:49] VITALS: BMI 28.7
[2018-10-24 11:23] LABS: APPEARANCE SL CLDY (CLEAR); BILIRUBIN NEGATIVE (NEGATIVE); COLOR YELLOW (YELLOW); GLUCOSE NEGATIVE (NEGATIVE); KETONE MODERATE mg/dL (NEGATIVE); NITRITE NEGATIVE (NEGATIVE); PROTEIN NEGATIVE (NEGATIVE); SPECIFIC GRAVITY 1.025 (1.005-1.020); UROBILINOGEN NORMAL (NORMAL)
== END | disposition home or self-care (01) ==
LOC: D.LABREF 10:43
PROVIDERS: Family Medicine
DX: K74.60 Unspecified cirrhosis of liver (principal)

== ENCOUNTER → 2018-10-28 08:00 | Outpatient (CLI) | payer MEDICARE ==
[2018-08-22 12:49] VITALS: BMI 28.7
== END | disposition home or self-care (01) ==
LOC: D.MAMMO 08:00
PROVIDERS: ATTEND Nurse Practitioner Family
DX: Z12.31 Encounter for screening mammogram for malignant neoplasm of breast (principal)

== ENCOUNTER → 2018-10-31 16:48 | Outpatient (CLI) | payer MEDICARE ==
[2018-08-22 12:49] VITALS: BMI 28.7
== END | disposition home or self-care (01) ==
LOC: D.LABREF 16:48
PROVIDERS: ATTEND Family Medicine
DX: K74.60 Unspecified cirrhosis of liver (principal); I10 Essential (primary) hypertension

== ENCOUNTER → 2018-11-30 17:37 | Outpatient (CLI) | payer MEDICARE ==
[2018-08-22 12:49] VITALS: BMI 28.7
== END | disposition home or self-care (01) ==
LOC: D.LABREF 17:37
PROVIDERS: ATTEND Family Medicine
DX: K74.60 Unspecified cirrhosis of liver (principal)

== ENCOUNTER → 2018-12-14 19:57 | Outpatient (CLI) | payer MEDICARE ==
[2018-08-22 12:49] VITALS: BMI 28.7
== END | disposition home or self-care (01) ==
LOC: D.LABREF 19:57
PROVIDERS: ATTEND Family Medicine
DX: K74.60 Unspecified cirrhosis of liver (principal)

== ENCOUNTER → 2019-01-04 16:32 | Outpatient (CLI) | payer MEDICARE ==
[2018-08-22 12:49] VITALS: BMI 28.7
== END | disposition home or self-care (01) ==
LOC: D.LABREF 16:32
PROVIDERS: ATTEND Internal Medicine Gastroenterology
DX: K74.60 Unspecified cirrhosis of liver (principal); R74.8 Abnormal levels of other serum enzymes

== ENCOUNTER → 2019-02-09 12:41 | Outpatient (CLI) | payer MEDICARE ==
[2018-08-22 12:49] VITALS: BMI 28.7
== END | disposition home or self-care (01) ==
LOC: D.LAB 12:41
PROVIDERS: ATTEND Internal Medicine Gastroenterology
DX: K74.60 Unspecified cirrhosis of liver (principal); R74.8 Abnormal levels of other serum enzymes; K72.90 Hepatic failure, unspecified without coma

== ENCOUNTER → 2019-02-16 15:49 | Outpatient (CLI) | payer MEDICARE ==
[2018-08-22 12:49] VITALS: BMI 28.7
== END | disposition home or self-care (01) ==
LOC: D.LAB 15:49
PROVIDERS: ATTEND Internal Medicine Gastroenterology
DX: K74.60 Unspecified cirrhosis of liver (principal); R74.8 Abnormal levels of other serum enzymes; K72.90 Hepatic failure, unspecified without coma

== ENCOUNTER → 2019-03-08 09:15 | Outpatient (CLI) | payer MEDICARE ==
[2018-08-22 12:49] VITALS: BMI 28.7
[2019-03-08 10:40] LABS: BASOPHILS 0.8 % (0-2); EOSINOPHILS 6.4 % (0-7); HEMATOCRIT 34.3 % (36.0-48.0); HEMOGLOBIN 11.6 g/dL (12-16); IMMATURE GRANULOCYTES 0.4 % (0-5); LYMPHOCYTES 39.5 % (15-50); MCH 32.1 pg (26.0-34.0); MCHC 33.8 g/dL (31.0-37.0); MEAN PLATELET VOLUME 8.6 fL (7.4-10.4); MONOCYTES 18.4 % (2-11); NEUTROPHILS 34.5 % (40-80); PLATELET COUNT 145 10x3/uL (130-400); RBC 3.61 10x6/uL (4.00-5.40); RDW 14.6 % (11.5-14.5); WBC 2.7 10x3/uL (4.8-10.8)
[2019-03-08 10:53] LABS: INR 1.22 (0.85-1.17); PROTIME 14.9 SECONDS (11.6-15.0)
[2019-03-08 11:00] LABS: ALBUMIN 2.7 g/dL (3.4-5.0); BILIRUBIN - DIRECT 0.28 mg/dL (0.00-0.30); BILIRUBIN - INDIRECT 0.61 mg/dL (0.00-1.00); BILIRUBIN - TOTAL 0.89 mg/dL (0.2-1.3); PROTEIN - SERUM 7.1 g/dL (6.4-8.2)
== END | disposition home or self-care (01) ==
LOC: D.US 03-06 08:00
PROVIDERS: ATTEND Internal Medicine Gastroenterology
DX: K74.60 Unspecified cirrhosis of liver (principal); K72.90 Hepatic failure, unspecified without coma; D69.6 Thrombocytopenia, unspecified

== ENCOUNTER → 2019-09-18 09:44 | Outpatient (CLI) | payer OTHER ==
[2018-08-22 12:49] VITALS: BMI 28.7
[2019-09-18 10:52] LABS: BASOPHILS 0.5 % (0-2); EOSINOPHILS 6.2 % (0-7); HEMATOCRIT 38.3 % (36.0-48.0); HEMOGLOBIN 12.7 g/dL (12-16); LYMPHOCYTES 33.6 % (15-50); MCH 31.2 pg (26.0-34.0); MCHC 33.2 g/dL (31.0-37.0); MCV 94.1 fL (80.0-100.0); MONOCYTES 9.8 % (2-11); NEUTROPHILS 49.9 % (40-80); RBC 4.07 10x6/uL (4.00-5.40); RDW 14.8 % (11.5-14.5); WBC 4.2 10x3/uL (4.8-10.8)
[2019-09-18 10:56] LABS: INR 1.1 (0.85-1.17); PROTIME 14.2 SECONDS (11.6-15.0)
[2019-09-18 11:04] LABS: ALBUMIN 2.7 g/dL (3.4-5.0); BILIRUBIN - DIRECT 0.31 mg/dL (0.00-0.30); BILIRUBIN - INDIRECT 0.67 mg/dL (0.00-1.00); BILIRUBIN - TOTAL 0.98 mg/dL (0.2-1.3)
[2019-09-18 11:06] LABS: PLATELET COUNT 191 10x3/uL (130-400)
== END | disposition home or self-care (01) ==
LOC: D.US 09:44
PROVIDERS: ATTEND Internal Medicine Gastroenterology
DX: K74.60 Unspecified cirrhosis of liver (principal)

== ENCOUNTER 2020-01-02 10:29 | Inpatient (IN) | payer MEDICARE ==
[~2020-01-02] VITALS: Ht 149.9 cm; Wt 68.9 kg
[2020-01-02 11:28] VITALS: BP 130/56
[2020-01-02 11:30] LABS: BASOPHILS 0.5 % (0-2); EOSINOPHILS 0.3 % (0-7); HEMATOCRIT 40.9 % (36.0-48.0); HEMOGLOBIN 13.3 g/dL (12-16); LYMPHOCYTES 31.6 % (15-50); MCH 30.9 pg (26.0-34.0); MCHC 32.5 g/dL (31.0-37.0); MCV 94.9 fL (80.0-100.0); MEAN PLATELET VOLUME 8.9 fL (7.4-10.4); MONOCYTES 12.7 % (2-11); NEUTROPHILS 54.9 % (40-80); PLATELET COUNT 184 10x3/uL (130-400); RBC 4.31 10x6/uL (4.00-5.40); RDW 15.3 % (11.5-14.5); WBC 6.1 10x3/uL (4.8-10.8)
[2020-01-02 11:34] LABS: UDS - AMPHET NEGATIVE QUAL (NEGATIVE); UDS - BARB NEGATIVE QUAL (NEGATIVE); UDS - BENZO NEGATIVE QUAL (NEGATIVE); UDS - COCAINE NEGATIVE QUAL (NEGATIVE); UDS - OPIATE NEGATIVE QUAL (NEGATIVE); UDS - PCP NEGATIVE QUAL (NEGATIVE); UDS - THC NEGATIVE QUAL (NEGATIVE)
[2020-01-02 11:36] LABS: CALC OSMOLALITY 287 mosm/kg (275-300); CALCIUM 8.7 mg/dL (8.5-10.1); CARBON DIOXIDE 19.3 mmol/L (21.0-32.0); CHLORIDE - SERUM 109 mmol/L (98-107); GLUCOSE 123 mg/dL (74-106); POTASSIUM - SERUM 3.8 mmol/L (3.5-5.1); SODIUM 142 mmol/L (136-145); UREA NITROGEN 23 mg/dL (7-18); eGFR NON AFRICAN AMERICAN 58 mL/min (90-120)
[2020-01-02 11:38] LABS: BILIRUBIN NEGATIVE (NEGATIVE); GLUCOSE NEGATIVE (NEGATIVE); KETONE MODERATE mg/dL (NEGATIVE); NITRITE POSITIVE (NEGATIVE); SPECIFIC GRAVITY 1.025 (1.005-1.020); UROBILINOGEN NORMAL (NORMAL)
[2020-01-02 11:38] LABS: APTT 31.4 SECONDS (22.8-39.4); INR 1.21 (0.85-1.17); PROTIME 15.2 SECONDS (11.6-15.0)
[2020-01-02 11:41] LABS: BACTERIA MANY /hpf (NEGATIVE); EPITHELIAL CELLS 0-5 /hpf (0-5); RED CELLS - URINE RARE /hpf (0-5)
[2020-01-02 11:43] LABS: HYALINE CAST 0-5 /lpf (NONE SEEN)
[2020-01-02] MEDS ORDERED: GLIMEPIRIDE2 MG PO (11:45)
[2020-01-02] MEDS ORDERED: XIFAXAN200 MG PO (11:45)
[2020-01-02] MEDS ORDERED: ZOLOFT50 MG PO (11:46)
[2020-01-02 11:58] LABS: ALBUMIN 3.2 g/dL (3.4-5.0); ALKALINE PHOSPHATASE 115 U/L (30-120); ALT (SGPT) 71 U/L (10-68); AMYLASE - SERUM 42 U/L (25-115); BILIRUBIN - TOTAL 2.34 mg/dL (0.2-1.3); CKMB 12.6 U/L (0.0-3.6); LIPASE 120 U/L (73-393); MAGNESIUM - SERUM 1.8 mg/dL (1.8-2.4); PROTEIN - SERUM 7.3 g/dL (6.4-8.2); THYROID STIMULATING HORMONE 1.29 uIU/mL (0.36-3.74)
[2020-01-02 12:04] LABS: CREATINE KINASE 2083 UL (21-215)
[2020-01-02 12:06] LABS: TROPONIN-I 0.109 ng/mL (0.000-0.060)
[2020-01-02 12:22] VITALS: BP 145/46
[2020-01-02] MEDS ORDERED: PROTONIX40 MG PO (13:44)
--- NOTE | 2020-01-02 13:50 | NUR ---
REC'D TO ROOM 2222 AWAKE AND ALERT TO SELF ONLY. RESP EVEN AND UNLABORED WITH NO DISTRESS NOTED CAN EXPRESS SOME NEEDS AND WANTS. NO C/O PAIN OR DISCOFMORT AT THIS TIME. ASSESSMENT COMPLETED. C/L IN REACH AT BEDSIDE.
[2020-01-02 15:59] LABS: CKMB 14.3 U/L (0.0-3.6)
[2020-01-02 16:06] LABS: CREATINE KINASE 2553 UL (21-215)
[2020-01-02 16:07] LABS: TROPONIN-I 0.105 ng/mL (0.000-0.060)
[2020-01-02 17:47] VITALS: BP 147/69
[2020-01-02 19:45] VITALS: BP 167/70; BMI 30.7
[2020-01-02 21:37] LABS: CKMB 14.2 U/L (0.0-3.6)
[2020-01-02 21:39] LABS: CREATINE KINASE 2697 UL (21-215); TROPONIN-I 0.119 ng/mL (0.000-0.060)
[2020-01-02 21:42] VITALS: BP 156/66
[2020-01-03 00:23] VITALS: BP 157/66
--- NOTE | 2020-01-03 03:14 | NUR ---
I have reviewed this patient and I concur with the Shift Assessment completed by the Licensed Practical Nurse today this shift.
[2020-01-03 03:31] LABS: EOSINOPHILS 2.9 % (0-7); HEMATOCRIT 36.1 % (36.0-48.0); HEMOGLOBIN 11.7 g/dL (12-16); LYMPHOCYTES 36.1 % (15-50); MCH 31.5 pg (26.0-34.0); MCHC 32.4 g/dL (31.0-37.0); MEAN PLATELET VOLUME 9.5 fL (7.4-10.4); MONOCYTES 13.6 % (2-11); NEUTROPHILS 46.4 % (40-80); RBC 3.71 10x6/uL (4.00-5.40); RDW 15.6 % (11.5-14.5); WBC 4.8 10x3/uL (4.8-10.8)
[2020-01-03 03:32] LABS: MCV 97.3 fL (80.0-100.0); PLATELET COUNT 110 10x3/uL (130-400)
[2020-01-03 03:41] LABS: ALBUMIN 2.4 g/dL (3.4-5.0); ALKALINE PHOSPHATASE 94 U/L (30-120); ALT (SGPT) 63 U/L (10-68); BILIRUBIN - TOTAL 1.92 mg/dL (0.2-1.3); CALCIUM 7.4 mg/dL (8.5-10.1); CARBON DIOXIDE 18.4 mmol/L (21.0-32.0); CHLORIDE - SERUM 112 mmol/L (98-107); CKMB 11.2 U/L (0.0-3.6); CREATININE - SERUM 0.8 mg/dL (0.6-1.3); GLUCOSE 98 mg/dL (74-106); POTASSIUM - SERUM 3.7 mmol/L (3.5-5.1); PROTEIN - SERUM 5.8 g/dL (6.4-8.2); SODIUM 145 mmol/L (136-145); eGFR NON AFRICAN AMERICAN 75 mL/min (90-120)
[2020-01-03 03:42] LABS: CALC OSMOLALITY 290 mosm/kg (275-300); CREATINE KINASE 1959 UL (21-215); UREA NITROGEN 17 mg/dL (7-18)
[2020-01-03 03:43] LABS: TROPONIN-I 0.106 ng/mL (0.000-0.060)
[2020-01-03 03:44] LABS: PLATELET ESTIMATE DECREASED
[2020-01-03 06:04] VITALS: BP 150/60
--- NOTE | 2020-01-03 08:15 | NUR ---
PATIENT IN BED WITH EYES CLOSED RESTING QUIETLY. NO COMPLAINTS. CALL LIGHT WITHIN REACH.
[2020-01-03 09:47] VITALS: BP 124/60
[2020-01-03 10:12] LABS: CKMB 9.4 U/L (0.0-3.6)
[2020-01-03 10:13] LABS: CREATINE KINASE 1456 UL (21-215)
[2020-01-03 10:14] LABS: TROPONIN-I 0.105 ng/mL (0.000-0.060)
[2020-01-03 13:17] VITALS: BP 132/50
[2020-01-03 13:57] VITALS: Ht 149.9 cm; Wt 68.9 kg
--- NOTE | 2020-01-03 18:45 | NUR ---
PATIENT SITTING UP IN BED WITH IV INTACT. NO COMPLAINTS OR SIGNS OF DISTRESS. NOT CONFUSED AT THIS TIME. BA ON. CALL LIGHT WITHIN REACH.
[2020-01-03 20:00] VITALS: BP 137/43
[2020-01-04] VITALS: BP 130/54
--- NOTE | 2020-01-04 00:43 | NUR ---
PT RESTING IN BED. EYES CLOSED. NO SIGNS OF DISTRESS. BREATHING EVEN AND UNLABORED. IV SITE LT FA DRESSING CLEAN DRY AND INTACT. NO SIGNS OF INFECTION OR INFULTRATION. LUNG SOUNDS CLEAR. BOWEL SOUNDS ACTIVE. LT CHEST SCAB PRESENT. LT KNEE BRAC. WILL CONTINUE PLAN OF CARE. CALL LIGHT IN REACH. BED LOWERED AND LOCKED. BED RAILS UPX2. SCOTT ALARM ON. FALL PRECAUTIONS IN PLACE.
[2020-01-04 04:00] VITALS: BP 114/45
--- NOTE | 2020-01-04 04:24 | NUR ---
I have reviewed this patient and I concur with the Shift Assessment completed by the Licensed Practical Nurse today this shift.
[2020-01-04 05:08] LABS: BASOPHILS 0.3 % (0-2); EOSINOPHILS 4.4 % (0-7); HEMATOCRIT 34.3 % (36.0-48.0); HEMOGLOBIN 11.1 g/dL (12-16); IMMATURE GRANULOCYTES 0.3 % (0-5); LYMPHOCYTES 41.2 % (15-50); MCH 31.3 pg (26.0-34.0); MCHC 32.4 g/dL (31.0-37.0); MCV 96.6 fL (80.0-100.0); MONOCYTES 11.9 % (2-11); NEUTROPHILS 41.9 % (40-80); RBC 3.55 10x6/uL (4.00-5.40); RDW 15.2 % (11.5-14.5); WBC 3.9 10x3/uL (4.8-10.8)
[2020-01-04 05:33] LABS: CALC OSMOLALITY 283 mosm/kg (275-300); CALCIUM 7.3 mg/dL (8.5-10.1); CARBON DIOXIDE 19.9 mmol/L (21.0-32.0); CHLORIDE - SERUM 115 mmol/L (98-107); CREATININE - SERUM 0.7 mg/dL (0.6-1.3); GLUCOSE 99 mg/dL (74-106); POTASSIUM - SERUM 3.5 mmol/L (3.5-5.1); SODIUM 142 mmol/L (136-145); UREA NITROGEN 14 mg/dL (7-18); eGFR NON AFRICAN AMERICAN 87 mL/min (90-120)
[2020-01-04 05:38] LABS: PLATELET COUNT 139 10x3/uL (130-400)
--- NOTE | 2020-01-04 07:31 | NUR ---
ALERT AND ORIENTED. LUNGS CLEAR BILATERALLY. HEART SOUNDS S1 AND S2 HEARD IN ALL JOINER. TELEMETRY PLACED. SCAB TO MIDDLE CHEST FROM "LINK" PLACEMENT PRIOR TO ADMIT. SKIN OTHERWISE INTACT WITHOUT REDNESS. IV TO LFA PATENT WITHOUT REDNESS. DENIES NEEDS. BED LOW. FALL PRECAUTIONS IN PLACE. CALL CHIRINOS AND PERSONAL ITEMS IN REACH. WILL CONTINUE TO MONITOR.
[2020-01-04 09:28] VITALS: BP 151/58
[2020-01-04 13:20] VITALS: BP 152/90
[2020-01-04] MEDS ORDERED: SMZ-TMP DS 800-1 TAB PO (15:07)
--- NOTE | 2020-01-04 15:47 | MORECARE ---
CASE MANAGEMENT DISCHARGE SUMMARY PATIENT: JACKY PRINCE UNIT: [id number] ADM DATE: 01/02/20 AGE: 74 : [birth year] SEX: F ROOM/BED: D.2222 AUTHOR: GILA ABRAHAM PHYSICIAN: REFERRING PHYSICIAN: TOM BLUNT MD DATE OF SERVICE: 01/04/20 Discharge Plan Patient Name: JACKY PRINCE Facility: [facility]:[place] : 1945 Planned Disposition: Anticipated Discharge Date: Discharge Date: Expected LOS: Initial Reviewer: [email or web address] Initial Review Date: 01/04/2020 Generated: 01/04/20 4:46 pm DCPIA - Discharge Planning Initial Assessment Updated by [email or web address]: Lana Radford on 01/04/20 3:43 pm * Is the patient Alert and Oriented? Yes * PCP MICHAUD * Pharmacy [facility] * Preadmission Environment Home with Family * ADLs Independent * Other Equipment WALKER, CANE * Community resources currently utilized None * Additional services required to return to the preadmission environment? Yes * Can the patient safely return to the preadmission environment? No * Has this patient been hospitalized within the prior 30 days at any hospital? Yes Patient Name: JACKY PRINCE Page [id number] at 1547 All edits/amendments must be made on the electronic document DICTATION DATE: 01/04/20 1546 HEALTH NAVIGATOR: HARJIT 01/04/20 1546 RPT#: [id number] DC DATE: STATUS: ADM IN [facility] [address] [place] [address] END OF REPORT
--- NOTE | 2020-01-04 15:54 | MORECARE ---
CASE MANAGEMENT DISCHARGE SUMMARY PATIENT: JACKY PRINCE UNIT: [id number] ADM DATE: 01/02/20 AGE: 74 : 47 SEX: F ROOM/BED: D.2222 AUTHOR: JARAD,DOC PHYSICIAN: REFERRING PHYSICIAN: TOM BLUNT MD DATE OF SERVICE: 01/04/20 Discharge Plan Patient Name: JACKY PRINCE Facility: [facility]:[place] : 1945 Planned Disposition: Anticipated Discharge Date: Discharge Date: Expected LOS: Initial Reviewer: [id number] Initial Review Date: 01/04/2020 Generated: 01/04/20 4:54 pm Comments DCP- Discharge Planning Updated by [id number]: Lana Radford on 01/04/20 2:[address] Patient Name: JACKY PRINCE Admission Status: ER Accout number: [id number] Admission Date: 01-02-2020 : 1945 Admission Diagnosis:ALTERED MENTAL STATUS, UNSPECIFIED Attending: TOM BLUNT Current LOS: 2 Anticipated DC Date: Planned Disposition: Primary Insurance: [facility] MEDICARE SOLUTIONS Discharge Planning Comments: CM met with patient at bedside after explaining CM role and obtaining verbal consent. CM discussed availability / needs of home health, REHAB and medical equipment. STATES SHE THINKS SHE NEEDS REHAB, GLORIA SIGNED FOR [facility]. I WILL FAX REFERRAL TO [facility] AND WE WILL NEED A COVID TEST ON PATIENT BEFORE THEY WILL ACCEPT. IMM SIGNED AND GLORIA FOR [facility]. Tax Services Manager: Lana Radford DCPIA - Discharge Planning Initial Assessment Updated by [id number]: Lana Radford on 01/04/20 3:43 pm * Is the patient Alert and Oriented? Yes * PCP MICHAUD * Pharmacy [facility] * Preadmission Environment Home with Family * ADLs Independent * Other Equipment WALKER, CANE * Community resources currently utilized None * Additional services required to return to the preadmission environment? Yes * Can the patient safely return to the preadmission environment? No * Has this patient been hospitalized within the prior 30 days at any hospital? Yes Coverage Notice Reviewer: [id number] - Lana Radford Notice Issued Date-Time: 01/04/2020 15:54 Notice Type: IM Discharge Notice Notice Delivered To: Patient Relationship to Patient: Monomer Purification Operator Name: Delivery Method: - Mahogany Days: Prior Verbal Notification: Recipient Understood Notice: Recipient Signature: Med Rec Note Co-signed by Attending: Coverage Notice Comment: Last DP export: 01/04/20 2:47 pm Patient Name: JACKY PRINCE Page [id number] at 1554 All edits/amendments must be made on the electronic document DICTATION DATE: 01/04/201553 MOTOR ADJUSTER: HARJIT 01/04/201553 RPT#: [id number] DC DATE: STATUS: ADM IN [facility] [address] [place] [address] END OF REPORT
--- NOTE | 2020-01-04 16:22 | NUR ---
TESTED FOR COVID 19 AND SENT TO LAB.
[2020-01-04 16:45] VITALS: BP 129/75
--- NOTE | 2020-01-04 16:46 | MORECARE ---
CASE MANAGEMENT DISCHARGE SUMMARY PATIENT: JACKY PRINCE UNIT: [id number] ADM DATE: 01/02/20 AGE: 74 : 47 SEX: F ROOM/BED: D.2222 AUTHOR: JARAD,DOC PHYSICIAN: REFERRING PHYSICIAN: TOM BLUNT MD DATE OF SERVICE: 01/04/20 Discharge Plan Patient Name: JACKY PRINCE Facility: [facility]:[place] : 1945 Planned Disposition: Anticipated Discharge Date: Discharge Date: Expected LOS: Initial Reviewer: [id number] Initial Review Date: 01/04/2020 Generated: 01/04/20 5:46 pm Comments DCP- Discharge Planning Updated by [id number]: Lana Radford on 01/04/20 2:[address] Patient Name: JACKY PRINCE Admission Status: ER Accout number: [id number] Admission Date: 01-02-2020 : 1945 Admission Diagnosis:ALTERED MENTAL STATUS, UNSPECIFIED Attending: TOM BLUNT Current LOS: 2 Anticipated DC Date: Planned Disposition: Primary Insurance: [facility] MEDICARE SOLUTIONS Discharge Planning Comments: CM met with patient at bedside after explaining CM role and obtaining verbal consent. CM discussed availability / needs of home health, REHAB and medical equipment. STATES SHE THINKS SHE NEEDS REHAB, GLORIA SIGNED FOR [facility]. I WILL FAX REFERRAL TO [facility] AND WE WILL NEED A COVID TEST ON PATIENT BEFORE THEY WILL ACCEPT. IMM SIGNED AND GLORIA FOR [facility]. Adding Machine Servicer: Lana Radford DCPIA - Discharge Planning Initial Assessment Updated by [id number]: Lana Radford on 01/04/20 3:43 pm * Is the patient Alert and Oriented? Yes * PCP MICHAUD * Pharmacy [facility] * Preadmission Environment Home with Family * ADLs Independent * Other Equipment WALKER, CANE * Community resources currently utilized None * Additional services required to return to the preadmission environment? Yes * Can the patient safely return to the preadmission environment? No * Has this patient been hospitalized within the prior 30 days at any hospital? Yes Coverage Notice Reviewer: [id number] - Lana Radford Notice Issued Date-Time: 01/04/2020 15:54 Notice Type: IM Discharge Notice Notice Delivered To: Patient Relationship to Patient: Assistant Administrator Name: Delivery Method: HAND - Hand Delivered Mahogany Days: Prior Verbal Notification: Recipient Understood Notice: Yes Recipient Signature: Yes Med Rec Note Co-signed by Attending: Coverage Notice Comment: Reviewer: [id number] Magdi Radford Notice Issued Date-Time: 01/04/2020 15:54 Notice Type: Patient Choice Letter Notice Delivered To: Patient Relationship to Patient: Assistant Administrator Name: Delivery Method: - Mahogany Days: Prior Verbal Notification: Recipient Understood Notice: Yes Recipient Signature: Yes Med Rec Note Co-signed by Attending: Coverage Notice Comment: LESIA LOZADA Last DP export: 01/04/20 2:54 pm Patient Name: JACKY PRINCE Page [phone] at 1646 All edits/amendments must be made on the electronic document DICTATION DATE: 01/04/201645 WATERWORKS OPERATOR: HARJIT 01/04/201645 RPT#: [id number] DC DATE: STATUS: ADM IN [facility] [address] [place] [address] END OF REPORT
--- NOTE | 2020-01-04 17:03 | NUR ---
OT NOTE: PT COMPLETED BED MOB WITH SIDE RAILS REQUIRED SBA. PT COMPLETED BUE AROM EXS. PT COMPLETED UB HYGIENE TASKS WITH SETUP. [phone] THANK YOU,HANSA VALDIVIA
[2020-01-04 20:00] VITALS: BP 156/69
[2020-01-05] VITALS: BP 144/62
--- NOTE | 2020-01-05 03:59 | NUR ---
I have reviewed this patient and I concur with the Shift Assessment completed by the Licensed Practical Nurse today this shift.
[2020-01-05 04:00] VITALS: BP 144/66
[2020-01-05 05:01] LABS: BASOPHILS 0.7 % (0-2); HEMATOCRIT 34.1 % (36.0-48.0); HEMOGLOBIN 11.1 g/dL (12-16); IMMATURE GRANULOCYTES 0.3 % (0-5); MCH 31.4 pg (26.0-34.0); MCHC 32.6 g/dL (31.0-37.0); MCV 96.6 fL (80.0-100.0); MONOCYTES 14.9 % (2-11); NEUTROPHILS 43.1 % (40-80); PLATELET COUNT 134 10x3/uL (130-400); RBC 3.53 10x6/uL (4.00-5.40); RDW 15.3 % (11.5-14.5)
[2020-01-05 05:40] LABS: CALC OSMOLALITY 279 mosm/kg (275-300); CALCIUM 7.6 mg/dL (8.5-10.1); CARBON DIOXIDE 19.1 mmol/L (21.0-32.0); CHLORIDE - SERUM 113 mmol/L (98-107); GLUCOSE 108 mg/dL (74-106); POTASSIUM - SERUM 3.9 mmol/L (3.5-5.1); SODIUM 140 mmol/L (136-145); UREA NITROGEN 13 mg/dL (7-18)
[2020-01-05 05:42] LABS: CREATININE - SERUM 0.5 mg/dL (0.6-1.3); eGFR NON AFRICAN AMERICAN > 90 mL/min (90-120)
--- NOTE | 2020-01-05 07:37 | NUR ---
ALERT AND ORIENTED. LUNGS CLEAR BILATERALLY. HEART SOUNDS S1 AND S2 HEARD IN ALL JOINER. BOWEL SOUNDS ACTIVE X 4. SKIN INTACT WITHOUT REDNESS. IV PATENT WITHOUT REDNESS. DENIES NEEDS. FALL PRECAUTIONS IN PLACE. CALL CHIRINOS AND PERSONAL ITEMS IN REACH. WILL CONTINUE TO MONITOR.
[2020-01-05 08:00] VITALS: BP 131/72
--- NOTE | 2020-01-05 08:55 | MORECARE ---
CASE MANAGEMENT DISCHARGE SUMMARY PATIENT: JACKY PRINCE UNIT: [id number] ADM DATE: 01/02/20 AGE: 74 : 47 SEX: F ROOM/BED: D.2222 AUTHOR: JARAD,DOC PHYSICIAN: REFERRING PHYSICIAN: TOM BLUNT MD DATE OF SERVICE: 01/05/20 Discharge Plan Patient Name: JACKY PRINCE Facility: [facility]:[place] : 1945 Planned Disposition: Anticipated Discharge Date: Discharge Date: Expected LOS: Initial Reviewer: [id number] Initial Review Date: 01/04/2020 Generated: 01/05/20 9:54 am Comments DCP- Discharge Planning Updated by [id number]: Siobhan Tavera on 01/05/20 7:[address] RECEIVED A CALL FROM LANA AT [facility] FAXED. THEY WILL NEED COVID AND SHE WILL LET HER DON LOOK OVER THE CLINICAL CM TO FOLLOW AND ASSIST DCP- Discharge Planning Updated by [email or web address]: Lana Radfodr on 01/04/20 2:[address] Patient Name: JACKY PRINCE Admission Status: ER Accout number: [id number] Admission Date: 01-02-2020 : 1945 Admission Diagnosis:ALTERED MENTAL STATUS, UNSPECIFIED Attending: TOM BLUNT Current LOS: 2 Anticipated DC Date: Planned Disposition: Primary Insurance: [facility] MEDICARE SOLUTIONS Discharge Planning Comments: CM met with patient at bedside after explaining CM role and obtaining verbal consent. CM discussed availability / needs of home health, REHAB and medical equipment. STATES SHE THINKS SHE NEEDS REHAB, GLORIA SIGNED FOR [facility]. I WILL FAX REFERRAL TO [facility] AND WE WILL NEED A COVID TEST ON PATIENT BEFORE THEY WILL ACCEPT. IMM SIGNED AND GLORIA FOR [facility]. Chief Accountant: Lana Radford DCPIA - Discharge Planning Initial Assessment Updated by [id number]: Lana Radford on 01/04/20 3:43 pm * Is the patient Alert and Oriented? Yes * PCP MICHAUD * Pharmacy [facility] * Preadmission Environment Home with Family * ADLs Independent * Other Equipment WALKER, CANE * Community resources currently utilized None * Additional services required to return to the preadmission environment? Yes * Can the patient safely return to the preadmission environment? No * Has this patient been hospitalized within the prior 30 days at any hospital? Yes Coverage Notice Reviewer: [id number] Radford Notice Issued Date-Time: 01/04/2020 15:54 Notice Type: IM Discharge Notice Notice Delivered To: Patient Relationship to Patient: Cad Programmer Name: Delivery Method: HAND - Hand Delivered Mahogany Days: Prior Verbal Notification: Recipient Understood Notice: Yes Recipient Signature: Yes Med Rec Note Co-signed by Attending: Coverage Notice Comment: Reviewer: [id number] Radford Notice Issued Date-Time: 01/04/2020 15:54 Notice Type: Patient Choice Letter Notice Delivered To: Patient Relationship to Patient: Cad Programmer Name: Delivery Method: - Mahogany Days: Prior Verbal Notification: Recipient Understood Notice: Yes Recipient Signature: Yes Med Rec Note Co-signed by Attending: Coverage Notice Comment: [facility] Last DP export: 01/04/20 3:46 pm Patient Name: JACKY PRINCE Page 67049 at 0855 All edits/amendments must be made on the electronic document DICTATION DATE: 01/05/20853 SENIOR FIREWALL ENGINEER: HARJIT 01/05/20853 RPT#: [id number] DC DATE: STATUS: ADM IN [facility] [address] [place] [address] END OF REPORT
--- NOTE | 2020-01-05 11:12 | NUR ---
PATIENT REFUSED INSULIN. BLOOD SUGAR 187.
[2020-01-05 12:00] VITALS: BP 141/69
--- NOTE | 2020-01-05 12:46 | NUR ---
SITTING IN BED EATING LUNCH. DENIES NEEDS. WILL CONTINUE TO MONITOR.
--- NOTE | 2020-01-05 13:27 | MORECARE ---
CASE MANAGEMENT DISCHARGE SUMMARY PATIENT: JACKY PRINCE UNIT: [id number] ADM DATE: 01/02/20 AGE: 74 : 47 SEX: F ROOM/BED: D.2222 AUTHOR: JARADDOC PHYSICIAN: REFERRING PHYSICIAN: TOM BLUNT MD DATE OF SERVICE: 01/05/20 Discharge Plan Patient Name: JACKY PRINCE Facility: [facility]:[place] : 1945 Planned Disposition: Anticipated Discharge Date: Discharge Date: Expected LOS: Initial Reviewer: [id number] Initial Review Date: 01/04/2020 Generated: 01/05/20 2:27 pm Comments DCP- Discharge Planning Updated by [id number]: Siobhan Tavera on 01/05/20 12:[address] Patient has been discharged to [facility] in a Skilled bed. She will be transported by [facility] to room 209. DCP- Discharge Planning Updated by [id number]: Siobhan Tavera on 01/05/20 7:[address] RECEIVED A CALL FROM LANA AT [facility] FAXED. THEY WILL NEED COVID AND SHE WILL LET HER DON LOOK OVER THE CLINICAL CM TO FOLLOW AND ASSIST DCP- Discharge Planning Updated by [id number]: Lana Radford on 01/04/20 2:[address] Patient Name: JACKY PRINCE Admission Status: ER Accout number: [id number] Admission Date: 01-02-2020 : 1945 Admission Diagnosis:ALTERED MENTAL STATUS, UNSPECIFIED Attending: TOM BLUNT Current LOS: 2 Anticipated DC Date: Planned Disposition: Primary Insurance: [facility] MEDICARE SOLUTIONS Discharge Planning Comments: CM met with patient at bedside after explaining CM role and obtaining verbal consent. CM discussed availability / needs of home health, REHAB and medical equipment. STATES SHE THINKS SHE NEEDS REHAB, GLORIA SIGNED FOR [facility]. I WILL FAX REFERRAL TO [facility] AND WE WILL NEED A COVID TEST ON PATIENT BEFORE THEY WILL ACCEPT. IMM SIGNED AND GLORIA FOR [facility]. Doors Prefitter: Lana Radford DCPIA - Discharge Planning Initial Assessment Updated by [id number]: Laan Radford on 01/04/20 3:43 pm * Is the patient Alert and Oriented? Yes * PCP JASWANT * [facility] * Preadmission Environment Home with Family * ADLs Independent * Other Equipment WALKER, CANE * Community resources currently utilized None * Additional services required to return to the preadmission environment? Yes * Can the patient safely return to the preadmission environment? No * Has this patient been hospitalized within the prior 30 days at any hospital? Yes Coverage Notice Reviewer: [id number] Magdi Radford Notice Issued Date-Time: 01/04/2020 15:54 Notice Type: IM Discharge Notice Notice Delivered To: Patient Relationship to Patient: Territory Sales Professional Name: Delivery Method: HAND - Hand Delivered Mahogany Days: Prior Verbal Notification: Recipient Understood Notice: Yes Recipient Signature: Yes Med Rec Note Co-signed by Attending: Coverage Notice Comment: Reviewer: [id number] Magdi Radford Notice Issued Date-Time: 01/04/2020 15:54 Notice Type: Patient Choice Letter Notice Delivered To: Patient Relationship to Patient: Territory Sales Professional Name: Delivery Method: - Mahogany Days: Prior Verbal Notification: Recipient Understood Notice: Yes Recipient Signature: Yes Med Rec Note Co-signed by Attending: Coverage Notice Comment: LESIA LOZADA Last DP export: 01/05/20 7:55 am Patient Name: JACKY PRINCE Page 52112 at 1327 All edits/amendments must be made on the electronic document DICTATION DATE: 01/05/20 1327 RADIO TALK SHOW HOST: HARJIT 01/05/20 1327 RPT#: [id number] DC DATE: STATUS: ADM IN [facility] [address] [place] [address] END OF REPORT
--- NOTE | 2020-01-05 13:47 | MORECARE ---
CASE MANAGEMENT DISCHARGE SUMMARY PATIENT: JACKY PRINCE UNIT: [id number] ADM DATE: 01/02/20 AGE: 74 : 47 SEX: F ROOM/BED: D.2222 AUTHOR: JARADDOC PHYSICIAN: REFERRING PHYSICIAN: TOM BLUNT MD DATE OF SERVICE: 01/05/20 Discharge Plan Patient Name: JACKY PRINCE Facility: [facility]:[place] : 1945 Planned Disposition: Anticipated Discharge Date: Discharge Date: Expected LOS: Initial Reviewer: [id number] Initial Review Date: 01/04/2020 Generated: 01/05/20 2:46 pm Comments DCP- Discharge Planning Updated by [id number]: Siobhan Tavera on 01/05/20 12:[address] called and spoke with Lacie and let her know about discharge PER PATIENTS REQUEST DCP- Discharge Planning Updated by [id number]: Siobhan Tavera on 01/05/20 12:[address] Patient has been discharged to [facility] in a Skilled bed. She will be transported by [facility] to room 209. DCP- Discharge Planning Updated by [id number]: Siobhan Tavera on 01/05/20 7:[address] RECEIVED A CALL FROM LANA AT [facility] FAX[facility]. THEY WILL NEED COVID AND SHE WILL LET HER DON LOOK OVER THE CLINICAL CM TO FOLLOW AND ASSIST DCP- Discharge Planning Updated by [id number]: Lana Radford on 01/04/20 2:[address] Patient Name: JACKY PRINCE Admission Status: ER Accout number: [id number] Admission Date: 01-02-2020 : 1945 Admission Diagnosis:ALTERED MENTAL STATUS, UNSPECIFIED Attending: TOM BLUNT Current LOS: 2 Anticipated DC Date: Planned Disposition: Primary Insurance: [facility] MEDICARE SOLUTIONS Discharge Planning Comments: CM met with patient at bedside after explaining CM role and obtaining verbal consent. CM discussed availability / needs of home health, REHAB and medical equipment. STATES SHE THINKS SHE NEEDS REHAB, GLORIA SIGNED FOR [facility]. I WILL FAX REFERRAL TO [facility] AND WE WILL NEED A COVID TEST ON PATIENT BEFORE THEY WILL ACCEPT. IMM SIGNED AND GLORIA FOR [facility]. Manager Chinese: Lana Radford DCPIA - Discharge Planning Initial Assessment Updated by [id number]: Lana Radford on 01/04/20 3:43 pm * Is the patient Alert and Oriented? Yes * PCP MICHAUD * Pharmacy [facility] * Preadmission Environment Home with Family * ADLs Independent * Other Equipment WALKER, CANE * Community resources currently utilized None * Additional services required to return to the preadmission environment? Yes * Can the patient safely return to the preadmission environment? No * Has this patient been hospitalized within the prior 30 days at any hospital? Yes Coverage Notice Reviewer: [id number] Magdi Radford Notice Issued Date-Time: 01/04/2020 15:54 Notice Type: IM Discharge Notice Notice Delivered To: Patient Relationship to Patient: Stunner And Shackler Name: Delivery Method: HAND - Hand Delivered Mahogany Days: Prior Verbal Notification: Recipient Understood Notice: Yes Recipient Signature: Yes Med Rec Note Co-signed by Attending: Coverage Notice Comment: Reviewer: [id number] Magdi Radford Notice Issued Date-Time: 01/04/2020 15:54 Notice Type: Patient Choice Letter Notice Delivered To: Patient Relationship to Patient: Stunner And Shackler Name: Delivery Method: - Mahogany Days: Prior Verbal Notification: Recipient Understood Notice: Yes Recipient Signature: Yes Med Rec Note Co-signed by Attending: Coverage Notice Comment: [facility] Last DP export: 01/05/20 12:27 pm Patient Name: JACKY PRINCE Page [phone] at 1347 All edits/amendments must be made on the electronic document DICTATION DATE: 01/05/20 1346 SUBCONTRACT ADMINISTRATOR: HARJIT 01/05/20 1346 RPT#: [id number] DC DATE: STATUS: ADM IN [facility] [address] [place] [address] END OF REPORT
--- NOTE | 2020-01-05 13:54 | NUR ---
IV REMOVED FROM LFA FOR DC WITH TIP INTACT.
--- NOTE | 2020-01-05 14:38 | NUR ---
DISCHARGE EDUCATION PROVIDED BOTH WRITTEN AND VERBAL. VERBALIZED UNDERSTANDING. DENIES QUESTIONS. PATIENT DC TO [facility] WITH ALL BELONGINGS. REPORT CALLED TO DOUGLAS AT [facility].
--- NOTE | 2020-01-05 16:15 | NUR ---
OT NOTE: PT COMPLETED SUPINE TO SIT WITH CGA. PT COMPLETED ADL MOB TO BATHROOM WITH CGA. PT COMPLETED TOILETING AND HYGIENE WITH SBA. PT COMPLETED HAND HYGIENE WITH SBA. [phone] THANK YOU,HANSA VALDIVIA
--- NOTE | 2020-01-05 17:23 | MORECARE ---
CASE MANAGEMENT DISCHARGE SUMMARY PATIENT: JACKY PRINCE UNIT: [id number] ADM DATE: 01/02/20 AGE: 74 : 47 SEX: F ROOM/BED: D.2222 AUTHOR: JARADDOC PHYSICIAN: REFERRING PHYSICIAN: TOM BLUNT MD DATE OF SERVICE: 01/05/20 Discharge Plan Patient Name: JACKY PRINCE Facility: [facility]:[place] : 1945 Planned Disposition: Anticipated Discharge Date: Discharge Date: 01/05/2020 Expected LOS: Initial Reviewer: [id number] Initial Review Date: 01/04/2020 Generated: 01/05/20 6:22 pm Comments DCP- Discharge Planning Updated by [email or web address]: Siobhan Tavera on 01/05/20 12:[address] called and spoke with Lacie and let her know about discharge PER PATIENTS REQUEST DCP- Discharge Planning Updated by [id number]: Siobhan Tavera on 01/05/20 12:[address] Patient has been discharged to [facility] in a Skilled bed. She will be transported by [facility] to room 209. DCP- Discharge Planning Updated by [id number]: Siobhan Tavera on 01/05/20 7:[address] RECEIVED A CALL FROM LANA AT [facility] FAX[facility]. THEY WILL NEED COVID AND SHE WILL LET HER DON LOOK OVER THE CLINICAL CM TO FOLLOW AND ASSIST DCP- Discharge Planning Updated by [id number]: Lana Radford on 01/04/20 2:[address] Patient Name: JACKY PRINCE Admission Status: ER Accout number: [id number] Admission Date: 01-02-2020 : 1945 Admission Diagnosis:ALTERED MENTAL STATUS, UNSPECIFIED Attending: TOM BLUNT Current LOS: 2 Anticipated DC Date: Planned Disposition: Primary Insurance: [facility] MEDICARE SOLUTIONS Discharge Planning Comments: CM met with patient at bedside after explaining CM role and obtaining verbal consent. CM discussed availability / needs of home health, REHAB and medical equipment. STATES SHE THINKS SHE NEEDS REHAB, GLORIA SIGNED FOR [facility]. I WILL FAX REFERRAL TO [facility] AND WE WILL NEED A COVID TEST ON PATIENT BEFORE THEY WILL ACCEPT. IMM SIGNED AND GLORIA FOR [facility]. Staff Assistant: Lana Radford DCPIA - Discharge Planning Initial Assessment Updated by [email or web address]: Lana Radford on 01/04/20 3:43 pm * Is the patient Alert and Oriented? Yes * PCP MICHAUD * Pharmacy [facility] * Preadmission Environment Home with Family * ADLs Independent * Other Equipment WALKER, CANE * Community resources currently utilized None * Additional services required to return to the preadmission environment? Yes * Can the patient safely return to the preadmission environment? No * Has this patient been hospitalized within the prior 30 days at any hospital? Yes Coverage Notice Reviewer: [id number] aMgdi Radford Notice Issued Date-Time: 01/04/2020 15:54 Notice Type: IM Discharge Notice Notice Delivered To: Patient Relationship to Patient: Bone Worker Name: Delivery Method: HAND - Hand Delivered Mahogany Days: Prior Verbal Notification: Recipient Understood Notice: Yes Recipient Signature: Yes Med Rec Note Co-signed by Attending: Coverage Notice Comment: Reviewer: [id number] Magdi Radford Notice Issued Date-Time: 01/04/2020 15:54 Notice Type: Patient Choice Letter Notice Delivered To: Patient Relationship to Patient: Bone Worker Name: Delivery Method: - Mahogany Days: Prior Verbal Notification: Recipient Understood Notice: Yes Recipient Signature: Yes Med Rec Note Co-signed by Attending: Coverage Notice Comment: [facility] Last DP export: 01/05/20 12:47 pm Patient Name: JACKY PRINCE Page 99374 at 1723 All edits/amendments must be made on the electronic document DICTATION DATE: 01/05/201721 HAND ASSEMBLER: HARJIT 01/05/201721 RPT#: [id number] DC DATE:01/05/20 STATUS: DIS IN [facility] [address] [place] [address] END OF REPORT
== END 2020-01-05 14:39 | DRG 441 ==
LOC: D.ER 10:29 → D.MS 12:36
PROVIDERS: Family Medicine; ADMIT Internal Medicine Nephrology; ATTEND Internal Medicine Nephrology
DX: K72.90 Hepatic failure, unspecified without coma (principal); G92 Toxic encephalopathy; N39.0 Urinary tract infection, site not specified; N17.9 Acute kidney failure, unspecified; I48.91 Unspecified atrial fibrillation; K21.9 Gastro-esophageal reflux disease without esophagitis; F41.9 Anxiety disorder, unspecified; E11.9 Type 2 diabetes mellitus without complications; K74.60 Unspecified cirrhosis of liver

== ENCOUNTER → 2020-03-19 09:27 | Outpatient (CLI) | payer MEDICARE ==
[2020-01-03 13:57] VITALS: BMI 30.7
[~2020-03-19 09:27] MED LIST changes: +GLIMEPIRIDE2 MG PO; +PROTONIX40 MG PO; +SMZ-TMP DS 800-1 TAB PO; +XIFAXAN200 MG PO; +ZOLOFT50 MG PO
[2020-03-19 10:07] LABS: BASOPHILS 0.3 % (0-2); EOSINOPHILS 0.8 % (0-7); IMMATURE GRANULOCYTES 0.2 % (0-5); LYMPHOCYTES 21.4 % (15-50); MCH 31.6 pg (26.0-34.0); MCHC 33.3 g/dL (31.0-37.0); MCV 94.9 fL (80.0-100.0); MEAN PLATELET VOLUME 8.5 fL (7.4-10.4); MONOCYTES 13.9 % (2-11); NEUTROPHILS 63.4 % (40-80); RBC 4.11 10x6/uL (4.00-5.40); RDW 16.2 % (11.5-14.5); WBC 6.3 10x3/uL (4.8-10.8)
[2020-03-19 10:21] LABS: ALBUMIN 2.7 g/dL (3.4-5.0); BILIRUBIN - DIRECT 0.34 mg/dL (0.00-0.30); BILIRUBIN - INDIRECT 0.68 mg/dL (0.00-1.00); BILIRUBIN - TOTAL 1.02 mg/dL (0.2-1.3); PROTEIN - SERUM 6.7 g/dL (6.4-8.2)
[2020-03-19 10:23] LABS: PLATELET COUNT 192 10x3/uL (130-400)
[2020-03-19 10:24] LABS: INR 1.06 (0.85-1.17); PROTIME 13.8 SECONDS (11.6-15.0)
== END | disposition home or self-care (01) ==
LOC: D.LAB 09:27 → D.US 10:30
PROVIDERS: ATTEND Internal Medicine Gastroenterology
DX: K74.69 Other cirrhosis of liver (principal)

== ENCOUNTER → 2020-11-22 11:36 | Outpatient (CLI) | payer MEDICARE ==
[2020-01-03 13:57] VITALS: BMI 30.7
== END | disposition home or self-care (01) ==
LOC: D.LAB 11:36
PROVIDERS: ATTEND Internal Medicine Gastroenterology
DX: E72.29 Other disorders of urea cycle metabolism (principal)